=== PATIENT | female | born 1995 | race Caucasian/White ===

== ENCOUNTER 2022-04-17 10:20 | Outpatient (CLI) | payer OTHER ==
[2022-04-17 10:55] LABS: BASOPHILS # (AUTO) 0.1 10^3/uL (0.0-0.1); BASOPHILS % (AUTO) 0.5 %; EOSINOPHILS # (AUTO) 0.1 10^3/uL (0.0-0.7); HCT - HEMATOCRIT 37.3 % (37.0-47.0); HGB - HEMOGLOBIN 12.7 g/dL (12.0-16.0); LYMPHOCYTES # (AUTO) 2.5 10^3/uL (1.5-3.5); LYMPHOCYTES % (AUTO) 19.9 %; MEAN CORPUSCULAR HEMOGLOBIN 31.4 pg (27.0-31.0); MEAN CORPUSCULAR VOLUME 92.1 fL (81.0-99.0); MEAN PLATELET VOLUME 11.9 fL (7.9-10.8); MONOCYTES % (AUTO) 8.2 %; NEUTROPHILS # (AUTO) 8.5 10^3/uL (1.5-6.6); NEUTROPHILS % (AUTO) 68.8 %; PLT - PLATELET COUNT 196 10^3/uL (130-450); RED BLOOD COUNT 4.05 10^6/uL (4.20-5.40); RED CELL DISTRIBUTION WIDTH 12.6 % (12.0-15.0); WHITE BLOOD COUNT 12.4 x10^3/uL (4.8-10.8)
[2022-04-17 11:40] LABS: CREATININE,URINE 14.5 mg/dL
[2022-04-17 11:41] LABS: ALBUMIN 2.9 g/dL (3.2-5.5); ALBUMIN/GLOBULIN RATIO 0.8 (1.0-2.2); BILIRUBIN,TOTAL 0.4 mg/dL (0.2-1.0); CALCIUM 8.9 mg/dL (8.5-10.3); CREATININE 0.5 mg/dL (0.4-1.0); POTASSIUM 3.7 mmol/L (3.5-5.0); TOTAL PROTEIN 6.6 g/dL (6.7-8.2)
[2022-04-17 11:56] LABS: TOTAL PROTEIN,URINE TIMED < 6 mg/dL
== END 2022-04-17 10:21 | disposition home or self-care (01) ==
LOC: LAB 10:20
PROVIDERS: ATTEND Nurse Practitioner Obstetrics & Gynecology
DX: R03.0 Elevated blood-pressure reading, without diagnosis of hypertension (principal)
CPT/HCPCS: 36415; 80053; 82570; 84156; 85025

== ENCOUNTER 2022-04-25 07:26 | Inpatient (IN) | payer OTHER ==
[2022-04-25] MEDS ORDERED: OXYTOCIN 10 UNIT/ML VIAL IM PRN (08:34)
[2022-04-25] MEDS ORDERED: SODIUM CHLORIDE FLUSH 0.9% 10 ML SYRINGE IVP PRN (08:34)
[2022-04-25] MEDS ORDERED: lidocaine 1% 20 ML MDV ID PRN (08:34)
[2022-04-25] MEDS ORDERED: ONDANSETRON 4 MG/2 ML VIAL IVP PRN (08:34)
[2022-04-25] MEDS ORDERED: TRANEXAMIC ACID IN NACL 1,000 MG/100 ML BAG IV PRN (08:34)
[2022-04-25] MEDS ORDERED: miSOPROStoL 200 MCG TABLET BC PRN (08:34)
[2022-04-25] MEDS ORDERED: CARBOPROST TROMETHAMINE 250 MCG/ML AMP IM PRN (08:34)
[2022-04-25] MEDS ORDERED: OXYTOCIN/SODIUM CHLORIDE 500 ML IV PRN (08:34)
[2022-04-25] MEDS ORDERED: METHYLERGONOVINE 0.2 MG/ML VIAL IM PRN (08:34)
--- NOTE | 2022-04-25 08:39 | HISTORY & PHYSICAL EXAMINATION ---
Admit History - Visit Reason Visit Reason: Other - : 1 Parity: 0 Premature: 0 Ectopic: 0 : 0 Care: positive: [facility] Risk/History: positive: None Complications This : positive: induced HTN Smoking Status: Never smoker - Mother's Labs Mother's Blood Type: positive: O Mother's RH: positive: Negative GBS: positive: Group B Step Negative Rubella Status: positive: Immune Review of Systems - Constitutional Constitutional: denies: Fatigue, Fever, Chills, Malaise - Eyes Eyes: denies: Blurred vision, Spots in vision, Dipolpia - Cardiovascular Cariovascular: denies: Irregular heart rate, Palpitations, Chest pain, Edema - Respiratory Respiratory: denies: Cough, Wheezing, SOB at rest - Gastrointestinal Gastrointestinal: denies: Abdominal pain, Constipation, Diarrhea, Change in bowel habits, Nausea, Vomiting - Genitourinary Genitourinary: denies: Dysuria - Integumentary Integumentary: denies: Rash, Pruritis - Neurological Neurological: denies: Headache Physical - Abdominal Exam Vital Signs: Temp Pulse Resp BP Pulse Ox O2 Flow Rate 36.8 C 04/25/22 08:25 Contraction Intensity: positive: Mild Uterine Resting Tone: positive: Soft - Monitoring Heart Rate Baseline: 140 Strip Review: positive: Category I - Presentation Presentation: positive: Vertex - Vaginal Exam Membranes: positive: Membranes intact Dilation (in cm): 4 Effacement (%): 80 Station: positive: -2 Cervical Position: positive: Posterior - Speculum Exam Speculum Exam Performed: positive: No Plan for Labor - Plan For Labor I expect patient to be DC'd or transferred within 96 hours.: Yes Plan for Labor: HPI: This 26yo @ 37.0wks gestation by 13.5wk U/S presents to [facility] for medical induction of labor secondary to gestational hypertension. She was diagnosed at 35.6wks gestation. Her labs have consistently remained WNL. She has experienced an intermittent, mild headache for the past 10 days. She denies headache currently. She denies visual disturbances, RUQ or epigastric pain and denies abnormal swelling. She had a cervical ripening balloon placed yesterday evening in the office and was /3 and posterior at that time. The balloon was inflated with 60cc normal saline. She reports she contracted intermittently with the balloon in place and it fell out at approximately midnight 0000 (in place x 6.5 hours). She denies leakage of fluid and reports the contractions dec reased in intensity after the balloon was spontaneously expelled. She has noticed increased vaginal mucous that is blood-tinged since that time. Upon arrival to [facility] this morning she was noted to be 4/80/-2, posterior, soft, and vertex with intact membranes. FHR baseline 140s, moderate variability, + accels, no decels. Contractions palpate mild intermittently with soft resting tone. She will be admitted to [facility] for active management. She has been a patient of [facility] since her transfer of care from [facility] at 17.4wks gestation. She has received consistent care for the duration of her which has remained uncomplicated with the exception of her diagnosis of gestational hypertension. She is noted to be Rh negative and received Rhogam 02/22/2022 at 28.1wks gestation. She is supported by her Ernie. 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 Last pap April 2021, No hx of abnormals. Medical Hx: Hx chlamydia several years ago, treated. Surgical Hx: No surgical hx. Family Hx: Maternal HTN. Meds: PNV. Occasional use of claratin and tylenol. Allergies: None known. 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 No tobacco, ETOH or recreational drug use. Quit vaping for . No ETOH or IVDA. Denies caffeine intake. course: O neg, antibody negative Rhogam 02/22/2022 @ 28.1wks Initial U/S @ 07/30/2021 dates (Not c/w LMP dating) FAS WNL with the exception of incomplete visualization of spine, cardiac outflow tracts, and cord insertion. Size c/w dating. 3VC. Completion FAS WNL. Tdap - 03/18/2022 COVID - 08/11/20 & 09/04/20 Influenza - 03/18/2022 Glucola 91 GBS negative Physical exam: Normocephalic, atraumatic Heart RRR w/o M/G/R Lungs CTAB Abdomen gravid, soft, nontender EFW 3400g FHR baseline 140s, moderate variability, + accels, no decels Contractions palpate mild intermittently with soft resting tone SVE 4/80/-2, posterior, soft. Vertex AROM occurred and was noted to be a moderate amount of clear fluid DTRs 2+, no clonus Bilateral LE's trace edema Assessment: 26yo @ 37.0wks gestation by 13.5wk Gestational hypertension Rh negative GBS neg FHR Category I Plan: Admit for active management/gestational hypertension Continuous monitoring. Expectant management x 2 hours with initiation of pitocin at that time if contractions less than q 3-5 min. Jacuzzi PRN. Nitrous oxide PRN. Epidural per maternal request. Anticipate .
[2022-04-25] MEDS ORDERED: NIFEdipine 10 MG CAPSULE PO PRN (08:44)
[2022-04-25] MEDS ORDERED: LABETALOL 20 MG/4 ML SYRINGE IVP PRN ×3 (08:44)
[2022-04-25] MEDS ORDERED: hydrALAZINE INJ 20 MG/ML VIAL IVP PRN ×2 (08:44)
[2022-04-25 08:52] LABS: BASOPHILS # (AUTO) 0.1 10^3/uL (0.0-0.1); BASOPHILS % (AUTO) 0.3 %; EOSINOPHILS # (AUTO) 0.1 10^3/uL (0.0-0.7); EOSINOPHILS % (AUTO) 0.4 %; HCT - HEMATOCRIT 38.2 % (37.0-47.0); LYMPHOCYTES # (AUTO) 2.7 10^3/uL (1.5-3.5); LYMPHOCYTES % (AUTO) 14.4 %; MEAN CORPUSCULAR HEMOGLOBIN 30.7 pg (27.0-31.0); MEAN CORPUSCULAR VOLUME 90.1 fL (81.0-99.0); MEAN PLATELET VOLUME 12.9 fL (7.9-10.8); MONOCYTES # (AUTO) 1.3 10^3/uL (0.0-1.0); MONOCYTES % (AUTO) 7.1 %; NEUTROPHILS # (AUTO) 14.4 10^3/uL (1.5-6.6); NEUTROPHILS % (AUTO) 76.9 %; PLT - PLATELET COUNT 211 10^3/uL (130-450); RED BLOOD COUNT 4.24 10^6/uL (4.20-5.40); RED CELL DISTRIBUTION WIDTH 12.9 % (12.0-15.0); WHITE BLOOD COUNT 18.7 x10^3/uL (4.8-10.8)
[2022-04-25] MEDS ORDERED: SODIUM CHLORIDE FLUSH 0.9% 10 ML SYRINGE IVP SCH (09:00)
[2022-04-25] MEDS ORDERED: LACTATED RINGERS 1,000 ML ONE (09:00)
[2022-04-25 09:02] LABS: ALBUMIN 3.3 g/dL (3.2-5.5); ALBUMIN/GLOBULIN RATIO 0.9 (1.0-2.2); BILIRUBIN,TOTAL 0.6 mg/dL (0.2-1.0); CALCIUM 9.3 mg/dL (8.5-10.3); CREATININE 0.6 mg/dL (0.4-1.0); POTASSIUM 3.6 mmol/L (3.5-5.0); TOTAL PROTEIN 6.9 g/dL (6.7-8.2)
--- NOTE | 2022-04-25 10:03 | ANESTHESIA ---
Pre-Anesthesia VS, & Labs - Diagnosis induction of labor - Procedure vaginal delivery Vital Signs: Temp Pulse Resp BP Pulse Ox O2 Flow Rate 36.8 C 04/25/22 08:25 Height: 5 ft 9 in Weight (kg): 97.976 kg Body Mass Index: 31.8 BMI Classification: Obese - NPO Other (clear liquids) - Is Patient ?: Yes - Lab Results Current Lab Results: Laboratory Tests 04/25/22 08:00: Sodium 137, Potassium 3.6, Chloride 105, Carbon Dioxide 20 L, Anion Gap 12.0, BUN 9, Creatinine 0.6, Estimated GFR (MDRD) 122, Glucose 81, Calcium 9.3, Total Bilirubin 0.6, AST 26, ALT 26, Alkaline Phosphatase 133 H, Total Protein 6.9, Albumin 3.3, Globulin 3.6, Albumin/Globulin Ratio 0.9 L 04/25/22 08:00: WBC 18.7 H, RBC 4.24, Hgb 13.0, Hct 38.2, MCV 90.1, MCH 30.7, MCHC 34.0, RDW 12.9, Plt Count 211, MPV 12.9 H, Neut # (Auto) 14.4 H, Lymph # (Auto) 2.7, Andrews # (Auto) 1.3 H, Eos # (Auto) 0.1, Baso # (Auto) 0.1, Absolute Nucleated RBC 0.00, Nucleated RBC % 0.0 Lab results reviewed: Yes Fish Bones: 04/25/22 08:00 04/25/22 08:00 Home Medications and Allergies Active Medications Carboprost Tromethamine (Carboprost Tromethamine 250 Mcg/Ml Amp) 250 mcg IM Q15M PRN PRN Reason: Step 4: Hemorrhage protocol Stop: 04/30/22 08:34 Hydralazine HCl (Hydralazine Inj 20 Mg/Ml Vial) 10 mg IVP .ONCE PRN PRN Reason: SBP> or= 160 OR DBP> or= 110 Hydralazine HCl (Hydralazine Inj 20 Mg/Ml Vial) 5 - 10 mg IVP Q20M PRN; Protocol PRN Reason: SBP> or= 160 OR DBP> or= 110 Oxytocin/Sodium Chloride (Pitocin/Sodium Chloride) 500 mls @ 999 mls/hr IV PRN PRN; Protocol PRN Reason: POST- HEMORR PREVENTION Stop: 04/30/22 08:34 Tranexamic Acid (Tranexamic 1,000 Mg/100ml-Nacl) 1,000 mg in 100 mls @ 600 mls/hr IV .ONCE PRN PRN Reason: EBL >1200mL and within 3hr Stop: 04/30/22 08:34 Lactated Ringer's (Lr) 1,000 mls @ 125 mls/hr IV .Q8H ASHLEY Labetalol HCl (Labetalol 20 Mg/4 Ml Syringe) 20 mg IVP .ONCE PRN PRN Reason: SBP> or= 160 OR DBP> or= 110 Labetalol HCl (Labetalol 20 Mg/4 Ml Syringe) 20 - 80 mg IVP Q10M PRN; Protocol PRN Reason: SBP> or= 160 OR DBP> or= 110 Labetalol HCl (Labetalol 20 Mg/4 Ml Syringe) 20 - 40 mg IVP Q10M PRN; Protocol PRN Reason: SBP> or= 160 OR DBP> or= 110 Lidocaine HCl (Lidocaine 1% 20 Ml Mdv) 20 ml ID .ONCE PRN PRN Reason: PERINEAL REPAIR Stop: 04/30/22 08:34 Methylergonovine Maleate (Methylergonovine 0.2 Mg/Ml Vial) 0.2 mg IM .ONCE PRN PRN Reason: Step 2: Hemorrhage protocol Stop: 04/30/22 08:34 Misoprostol (Misoprostol 200 Mcg Tablet) 800 mcg BC .ONCE PRN PRN Reason: Step 3: Hemorrhage protocol Stop: 04/30/22 08:34 Nifedipine (Nifedipine 10 Mg Capsule) 10 - 20 mg PO Q20M PRN; Protocol PRN Reason: SBP> or= 160 OR DBP> or= 110 Ondansetron HCl (Ondansetron 4 Mg/2 Ml Vial) 4 mg IVP Q4HR PRN PRN Reason: Nausea / Vomiting Oxytocin (Oxytocin 10 Unit/Ml Vial) 10 unit IM .ONCE PRN PRN Reason: Step one: If no IV access Stop: 04/30/22 08:34 Sodium Chloride (Sodium Chloride Flush 0.9% 10 Ml Syringe) 10 ml IVP 0100,0900,1700 ASHLEY Sodium Chloride (Sodium Chloride Flush 0.9% 10 Ml Syringe) 10 ml IVP PRN PRN PRN Reason: NEEDED PER PROVIDER ORDERS Allergies/Adverse Reactions: Allergies Allergy/AdvReac Type Severity Reaction Status Date / Time No Known Drug Allergies Allergy Verified 04/25/22 10:02 Anes History & Medical History - Anesthetic History Family history of Anesthesia Complications: Denies Family history of Malignant Hyperthermia: Denies - Medical History Cardiovascular: reports: Hypertension (PIH) Pulmonary: reports: None Gastrointestinal: reports: None Urinary: reports: None Neuro: reports: None Musculoskeletal: reports: None Endocrine/Autoimmune: reports: None Blood Disorders: reports: None Skin: reports: None Smoking Status: Former smoker (vaped, quit 1 year ago) Psychosocial: reports: No issues indicated History of Cancer?: No - Surgical History Other Past Surgical History: wisdom teeth - Obstetrical History : 1 Parity: 0 Events: reports: None Complications: reports: induced HTN Exam General: Alert, Oriented x3, Cooperative, No acute distress Dental: WNL (perm. retainer front lower) Mouth Openin Fingerbreadth Neck Mobility: Normal Mallampati classification: II Thyromental Distance: 4-6 cm Mental/Cognitive Status: Alert/Oriented X3, Normal for patient Plan Anesthesia Type: Epidural Consent for Procedure(s) Verified and Reviewed: Yes Code Status: Attempt Resuscitation ASA classification: 2-Mild systemic disease Is this case an emergency?: No
[2022-04-25 10:57] LABS: CREATININE,URINE 84.1 mg/dL; PROTEIN/CREATININE RATIO,URINE 0.1 (<=0.2)
[2022-04-25] MEDS ORDERED: ROPIVACAINE 0.2% 200 MG/100 ML BAG EP ONE (12:26)
[2022-04-25] MEDS: LACTATED RINGERS 1,000 ML IV SCH ×2 (12:45→15:21)
[2022-04-25] MEDS ORDERED: NALOXONE 0.4 MG/ML VIAL IVP PRN (12:56)
[2022-04-25] MEDS ORDERED: ROPIVACAINE 0.2% 200 MG/100 ML BAG EP PRN (12:56)
[2022-04-25] MEDS ORDERED: OXYTOCIN/SODIUM CHLORIDE 500 ML IV SCH (14:15)
[2022-04-25] MEDS ORDERED: ePHEDrine 50 MG/ML VIAL IVP PRN (16:34)
--- NOTE | 2022-04-25 16:39 | CONSULTATION NOTE ---
Consultation Report: called as patient having nausea, FHR changes with each intermittent programmed bolus, changed pump settings to 10cc/hour continuous and ephedrine prn ordered
[2022-04-25] MEDS ORDERED: WITCH HAZEL/GLYCERIN 1 PAD TOP PRN (18:31)
[2022-04-25] MEDS ORDERED: HYDROCORTISONE 1% CREAM 28 GM TUBE PR PRN (18:31)
--- NOTE | 2022-04-25 18:42 | DELIVERY NOTE ---
Delivery Note - Labor Labor: positive: Augmented by oxytocin, Induced by ARM - Delivery Method Infant Delivery Method: positive: Spontaneous vaginal delivery - Cervical Ripening Method Cervical Ripening Method: positive: Balloon device - Presentation Presentation: positive: Vertex, Compound, MINNIE - right occiput anterior - Nuchal Cord Nuchal Cord: positive: None - Amniotic Fluid Description Amniotic Fluid Description: positive: Clear - Episiotomy Type Episiotomy Type: positive: None - Laceration Laceration: positive: None - Delivery Outcome Delivery Outcome: positive: Livebirth - : positive: Placed in direct skin contact with mother, Bulb syringe, Stimulated, Warmed, [place] used, Warmer used [place] sex: positive: Male - Cord Cord: positive: 3 vessels - Placenta Placenta: positive: Intact, Spontaneous - Estimated Blood Loss Estimated Blood Loss (in cc): 200 - Post Delivery Events Post Delivery Events: positive: No post delivery events - Delivery Comments (Free Text/Narrative) Delivery Comments (Free Text/Narrative): Note: Labor: This 26yo @ 37.0wks gestation by 13.5wk U/S presented on 04/25/2022 at 0730 for medical induction of labor secondary to gestational hypertension. She had a cervical ripening balloon placed 04/24/2022 @ 1830 and it was spontaneously expelled 04/25/2022 at 0000. Upon arrival SVE 4/80/-2 and vertex with intact membranes. AROM occurred at 0822 and was noted to be a moderate amount of clear fluid. Epidural was placed per maternal request. Pitocin initiated for labor augmentation for a maximum infusion rate of 7 mU/mL. She progressed to c/c/0 at 1740 with onset of pushing at 1802. : Normal SVB of viable male infant on 04/25/2022 @ 1809 in MINNIE position with compound right hand. No nuchal cord. The was placed on maternal abdomen, stimulated, dried, and placed skin to skin. Apgars were 8/8 at 1 and 5 minutes respectively. Pitocin initiated via IV for hemostasis. The umbillical cord was allowed to stop pulsating at which time it was doubly clamped by CNM and cut by FOB. 3VC. Cord blood was obtained. Fundal massage and gentle cord traction applied for active management of the third stage. Placenta delivered spontaneously and intact at 1816. EBL 200mL. Fourth stage: Uterine fundus firm and there is no excessive bleeding. The perineum, vagina, and cervix were inspected and noted to be intact. initiated. Family bonding well. Both mother and baby were left in stable condition.
[2022-04-25] MEDS: DOCUSATE SODIUM 100 MG CAPSULE PO SCH (21:35)
[2022-04-25] MEDS: IBUPROFEN 800 MG TABLET PO SCH (21:35)
[2022-04-25] MEDS: ACETAMINOPHEN 500 MG TABLET PO SCH (21:35)
[2022-04-26] MEDS: IBUPROFEN 800 MG TABLET PO SCH ×3 (04:43→20:32)
[2022-04-26] MEDS: ACETAMINOPHEN 500 MG TABLET PO SCH ×3 (05:32→22:47)
[2022-04-26] MEDS: DOCUSATE SODIUM 100 MG CAPSULE PO SCH ×2 (09:36→20:32)
[2022-04-27] MEDS: IBUPROFEN 800 MG TABLET PO SCH ×2 (02:33→08:30)
[2022-04-27] MEDS: ACETAMINOPHEN 500 MG TABLET PO SCH (06:45)
[2022-04-27] MEDS: DOCUSATE SODIUM 100 MG CAPSULE PO SCH (08:30)
[2022-04-27 08:34] VITALS: BP 127/69
--- NOTE | 2022-04-27 10:23 | PROVIDER PROGRESS NOTE ---
Subjective - Subjective Subjective: S: Bonding well with baby. with some difficulty but has been able to hand express a large amount of colostrum into a teaspoon to feed which she feels good about. She was able to get some sleep last night. She is supported by her mom and her mother in law as her just went home to take a shower and a nap. She is feeling good physically and states her bleeding is decreased and is light. Her pain is well controlled with oral medications. She denies WOLFE, visual disturbances, RUQ or epigastric pain. O: BP normotensive. Heart RRR w/o M/G/R, lungs CTAB, abdomen soft and nontender with fundus firm at U, perineum intact, light lochia rubra, bilateral LE's trace edema. A: 26yo -->P1 PPD#1 s/p TSVD viable male infant Rh negative - Rh negative Gestational hypertension - resolved Normal recovery P: Continue routine care and medications. Special attention to today. Evaluate for discharge home tomorrow. Objective - Vital Signs/Intake & Output Vital Signs: Vital Signs x48h Temp Pulse Resp BP Pulse Ox 04/27/22 08:00 36.2 C L 89 16 127/69 100 Intake & Output: Intake & Output 04/24/22 04/25/22 04/26/22 04/27/22 23:59 23:59 23:59 23:59 Intake Total 2500 Output Total 1420 Balance 1080 - Lab Results Fish Bones: 04/25/22 08:00 04/25/22 08:00
--- NOTE | 2022-04-27 10:25 | Discharge Plan ---
Discharge Plan Problem Reviewed?: Yes Disposition: Home, Self Care Condition: Good Diet: Regular Activity Restrictions: No Restrictions Shower Restrictions: No Driving Restrictions: No Weight Bearing: Full Weight Instruction Topics: Vaginal After No Smoking: If you smoke, Please STOP! Call for help. Follow-up with: Moraima Merritt CNM, ARNP [Provider Admit Priv/Credential] -
--- NOTE | 2022-04-27 10:33 | DISCHARGE SUMMARY ---
Discharge Summary Condition at Discharge: Good Discharge Disposition: 01 Home, Self Care - HOSPITAL COURSE Hospital Course: Date of Admission: 04/25/2022 Date of Discharge: 04/27/2022 Diagnosis on Admission: 1. 26yo @ 37.0wks gestation by 13.5wk 2. Gestational hypertension 3. Rh negative 4. GBS neg 5. FHR Category I Diagnosis on Discharge: 1. 26yo PPD#2 s/p TSVD viable male 2. Gestational hypertension - resolved 3. Rh negative - infant Rh negative as well 4. 5. Normal recovery Brief History: She is a patient of [facility] who presented on 04/25/2022 for medical induction of labor secondary to gestational hypertension. She was s/p cervical ripening balloon and cervix was 4/80/-2, posterior and vertex with intact membranes. AROM occurred at 0822 and was noted to be a moderate amount of clear fluid. Epidural was placed her maternal request. Pitocin was initiated for labor augmentation with a maximum infusion rate of 7mU/mL. She progressed to spontaneously deliver a viable male on 04/25/2022 @ 1809 in MINNIE position with right compound hand over intact perineum. Apgars were 8/8 at 1 and 5 minutes respectively. EBL 200mL. She has been doing well in her course. She is ambulating and tolerating a regular diet. She is urinating without difficulty and her lochia is normal. Her pain is well controlled with oral medications. She has continued to deny headache, visual disturbances, RUQ or epigastric pain and her blood pressure has become normotensive since delivery. She is bonding well with her ba by and she is with some difficulty getting baby to latch appropriately and wake for feeds but has been working closely with nursing staff and has an abundance of colostrum. She has also been able to hand express and teaspoon feed. She will be discharged home today on day #1 with instructions to continue taking her vitamin while and to continue taking ibuprofen and tylenol over the counter as needed for pain management. She intends to follow up with myself at [facility] in 1 week for routine visit or sooner if needed. She has been given precautions to call if she has any worsening fevers, chills, abdominal pain, increased vaginal bleeding or foul smelling vaginal lochia. Physical exam: Normocephalic, atraumatic, heart RRR w/o M/G/R, lungs CTAB, abdomen soft and nontender with fundus firm at U-1, perineum intact, light lochia rubra, bilateral LE's 1+ edema, mood is good. - ALLERGIES Allergies/Adverse Reactions: Allergies Allergy/AdvReac Type Severity Reaction Status Date / Time No Known Drug Allergies Allergy Verified 04/25/22 10:02 - LABS Result Diagrams: 04/25/22 08:00 04/25/22 08:00
--- NOTE | 2022-04-27 12:26 | Labor Flowsheet ---
Labor Flowsheet Datetime Report Generated by CPN: 04/27/2022 12:26 Datetime: 04/27/2022 08:26 VITAL SIGNS NBP Sys/Erica/Mean (mmHg): 127 : 69 : 82 Pulse: 89 Datetime: 04/25/2022 22:28 Stage of : Datetime: 04/25/2022 21:16 Temperature (C): 36.9 Temperature Route: Oral Datetime: 04/25/2022 20:40 ANESTHESIA Anesthesia Plans: Epidural Epidural Procedure Other: Cath Removed; Cath Intact Datetime: 04/25/2022 18:59 SpO2 (%): 100 Datetime: 04/25/2022 18:34 PAIN Pain Scale: 2 Pain Presence: Intermittent Pain Location: Abdomen; Back Datetime: 04/25/2022 18:30 LaborFlag: Labor Datetime: 04/25/2022 18:27 Membranes Ruptured Date/Time: 04/25/2022 08:22 Cervical Ripening Agents: Tse Balloon Datetime: 04/25/2022 18:12 Stage 2 Comments: cord cut Datetime: 04/25/2022 18:07 STAGE 2 Pushing: Coached on Pushing; No Urge to Push Pushing Position: Pushing with Contractions Pushing Progress: Descent with Pushing; Perineal Bulging; Rectal Bulging; Molding Noted; Caput Note d; Presenting Part Visible Datetime: 04/25/2022 18:05 FHR Baseline Rate : 140 FHR Baseline Changes: No Baseline Change Variability: Moderate 6-25 bpm Accelerations: 15X15 Decelerations: None Category: Category I Comments: Pt pushing Datetime: 04/25/2022 18:00 I/O Interventions: Tse Discontinued Patient Care Comments: 800ml output Datetime: 04/25/2022 17:57 COMMUNICATION Communication: Provider at Bedside Datetime: 04/25/2022 17:45 Frequency (min): 2-3 min Quality: Moderate Pattern: Normal: <= 5 Contractions in 10 Minutes Resting Tone (Palpate): Relaxed Contraction Comments: unable to track well ASSESSMENT A Monitor Mode: Telemetry Datetime: 04/25/2022 17:40 VAGINAL EXAM Dilatation (cm): 10.0 Effacement (%): 100 Station: 1 Vaginal Bleeding: Scant MATERNAL ASSESSMENT Level of Consciousness: Alert DTR's/Clonus: DTRs 1+ Nausea/Vomiting: Denies Notification Reason: Status Update Communication Comments: Provider to come to hospital Datetime: 04/25/2022 17:33 Anesthesia Level Check: T10- Umbilicus Datetime: 04/25/2022 17:29 Duration (sec): 60-80 Datetime: 04/25/2022 17:15 UTERINE ACTIVITY Monitor Mode: External Pitocin Checklist: At Least 1 Acceleration of 15 bpm x 15 Seconds in 30 Minutes or Adequate Variabi lity; No More than 1 Late Deceleration Occurred in Past 30 Minutes; No More than 2 Variable Decelerat ions > 60 Seconds in Duration and decreasing >60 bpm in 30 minutes; No More than 5 Uterine Contractio ns in 10 Minutes for any 20 Minute Interval MEDICATIONS Pitocin (milliunits): Increased to @ 7 Datetime: 04/25/2022 16:25 Patient Position/Activity: Left Tilt Datetime: 04/25/2022 16:15 Oxygen Method: Room Air Datetime: 04/25/2022 15:29 Respirations: 16 Datetime: 04/25/2022 15:14 PATIENT CARE IV/Blood Work: IV Bolus Started Datetime: 04/25/2022 15:00 Monitor Interventions for UA: [place] Adjusted Datetime: 04/25/2022 14:01 Monitor Interventions for FHR: Ultrasound Adjusted Actions for Decelerations: Side to Side Provider Reviewed Strip: Yes Datetime: 04/25/2022 13:33 Exam by: gualberto jesús cnm Cervix, Consistency: Soft Datetime: 04/25/2022 13:01 Pain Coping: Sleeping Pain Assessment Comments: feeling better on right side. Datetime: 04/25/2022 12:40 Epidural Procedure: Loading Dose Datetime: 04/25/2022 12:31 PROCEDURE TIME OUT Procedure Verify: Correct Patient Identity; Accurate Procedure Consent Form; Agreement on Procedure to be Done; Correct Patient Position; Addressed Need to Administer Antibiotics or Fluids for Irrigat ion; Safety Precautions Based on Patient History or Medication Use Epidural Positioning: Sitting Datetime: 04/25/2022 12:27 Anesthesia Comments: cardiac exercise physiologist here Datetime: 04/25/2022 11:19 Cervix, Position: Midposition
== END 2022-04-27 12:10 | disposition home or self-care (01) | DRG 807 ==
LOC: WFO 07:26 → FBP 07:42 → WFO 08:33 → FBP 08:34
PROVIDERS: ADMIT Nurse Practitioner Obstetrics & Gynecology; ATTEND Nurse Practitioner Obstetrics & Gynecology
PROC: 10907ZC Drainage of Amniotic Fluid, Therapeutic from Products of Conception, Via Natural or Artificial Opening (ICD-10-PCS; principal; 2022-04-25)
PROC: 10E0XZZ Delivery of Products of Conception, External Approach (ICD-10-PCS; 2022-04-25)
DX: O13.4 Gestational [pregnancy-induced] hypertension without significant proteinuria, complicating childbirth (principal); Z37.0 Single live birth; O32.6XX0 Maternal care for compound presentation, not applicable or unspecified; Z3A.37 37 weeks gestation of pregnancy; O26.893 Other specified pregnancy related conditions, third trimester; Z67.41 Type O blood, Rh negative; O99.214 Obesity complicating childbirth; Z87.891 Personal history of nicotine dependence
CPT/HCPCS: 36415; 80053; 82570; 84156; 85025; 86850; 86870; 86880; 86900; 86901; A9270; J7120

== ENCOUNTER 2024-02-03 08:00 | Outpatient (CLI) | payer OTHER ==
[2024-02-03 18:54] LABS: CHLAMYDIA TRACHOMATIS DNA NEGATIVE (NEGATIVE); NEISSERIA GONORRHOEAE DNA NEGATIVE (NEGATIVE); TRICHOMONAS VAGINALIS DNA NEGATIVE (NEGATIVE)
== END 2024-02-03 23:59 | disposition home or self-care (01) ==
LOC: LAB.WC 08:00
PROVIDERS: ATTEND Nurse Practitioner Obstetrics & Gynecology
DX: Z11.3 Encounter for screening for infections with a predominantly sexual mode of transmission (principal)
CPT/HCPCS: 87491; 87591; 87661

== ENCOUNTER 2024-08-26 14:55 | Inpatient (IN) ==
[2024-08-26] MEDS ORDERED: hydrALAZINE INJ 20 MG/ML VIAL IVP PRN ×2 (16:02)
[2024-08-26] MEDS ORDERED: LACTATED RINGERS 1,000 ML IV PRN (16:02)
[2024-08-26] MEDS ORDERED: NIFEdipine 10 MG CAPSULE PO PRN (16:02)
[2024-08-26] MEDS ORDERED: CARBOPROST TROMETHAMINE 250 MCG/ML VIAL IM PRN (16:02)
[2024-08-26] MEDS ORDERED: TRANEXAMIC ACID IN NACL 1,000 MG/100 ML BAG IV PRN (16:02)
[2024-08-26] MEDS ORDERED: miSOPROStoL 200 MCG TABLET BC PRN (16:02)
[2024-08-26] MEDS ORDERED: OXYTOCIN/SODIUM CHLORIDE 500 ML IV PRN (16:02)
[2024-08-26] MEDS ORDERED: SODIUM CHLORIDE FLUSH 0.9% 10 ML SYRINGE IVP PRN (16:02)
[2024-08-26] MEDS ORDERED: LABETALOL 20 MG/4 ML SYRINGE IVP PRN ×3 (16:02)
[2024-08-26] MEDS ORDERED: METHYLERGONOVINE 0.2 MG/ML VIAL IM PRN (16:02)
[2024-08-26] MEDS ORDERED: OXYTOCIN 10 UNIT/ML VIAL IM PRN (16:02)
[2024-08-26] MEDS ORDERED: lidocaine 1% 20 ML MDV ID PRN (16:02)
--- NOTE | 2024-08-26 16:13 | HISTORY & PHYSICAL EXAMINATION ---
Admit History Smoking Status: Never smoker Meds/Allgy Home Medications Ambulatory Orders Medication Instructions Recorded Confirmed vitamins no.159-iron tab PO 03/08/24 08/24/24 fumarate 28 mg-folic acid 800 mcg tablet ( Vitamin) aspirin 81 mg tablet,delayed 81 mg PO QDAY 04/19/24 08/24/24 release (Adult Aspirin Regimen) acyclovir 400 mg tablet 400 mg PO TID #15 tabs 05/17/24 08/24/24 Allergies Allergies Allergy/AdvReac Type Severity Reaction Status Date / Time No Known Drug Allergies Allergy Verified 08/24/24 12:40 PFSH Active Problems All Active Problems (Updated 08/10/24 @ 15:47 by JUSTIN Meeks) Gestational HTN (Acute) Rh negative status during (Acute) Supervision of normal (Acute) Medical History Medical History (Updated 08/10/24 @ 15:47 by JUSTIN Meeks) Elevated blood pressure reading in office without diagnosis of hypertension Surgical History Surgical History [place] teeth extracted Social History Social History Smoking Status: Never smoker Plan for Labor Plan For Labor I expect patient to be DC'd or transferred within 96 hours.: Yes Plan for Labor: Anna is a 29yo @ 37.0wks gestation by LMP c/w first trimester ultrasound presents to [facility] for induction of labor secondary to gestational hypertension. Upon arrival BP is 140/99. She denies headaches, visual disturbances RUQ or epigastric pain. Pre-eclampsia labs are ordered and results pending. She has been taking LDASA since 12wks gestation. Diagnosis of GHT occurred at 34wks gestation. She had a physician consult at that time in addition to growth ultrasound which was WNL (EFW 85%tile). She has also received twice weekly NSTs since her diagnosis which have all remained reactive/WNL. Upon arrival her cervix is noted to be fingertip/60/-3, posterior, soft and vertex with intact membranes. She will be admitted to [facility] for active management of labor with placement of cervical ripening balloon and administration of misoprostol for pre-induction cervical ripening. She is supported by her Ernie today. Dating criteria: LMP: 12/11/2023 DWIGHT by LMP: 09/17/2024 Initial U/S: 02/03/2024 c/w lmp FINAL DWIGHT: 09/16/2024 PROBLEMS: -Hx Gestational Hypertension. Current gestational HTN diagnosed at 34wks -LDASA daily -Consult with physician secondary to development of gestational hypertension at 34wks -Growth ultrasound @ 35wks WNL (EFW 85%tile) -Twice weekly NSTs initiated -IOL scheduled 08/26/2024 Medical Hx: GHTN Surgical Hx: wisdom teeth Social Hx: Ernie is active [employer]. 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 Denies ETOH or IVDA. Never smoker. Family Hx: No significant ALLERGiES: NKDA RX: Acyclovair, PNV, Aspirin Pre- Weight: 202 BMI: 34 Blood type O negative Rh Negative Antibody Negative CBC: PLT 303 HCT 39.6 HGB 13.5 RUB: Immune VZV: immune HBsAg Negative HepC NR RPR/AB-EIA: NR HIV: NR GC/CT: Negative HSV: denies in self and partner Genetic testing: NIPT neg FAS: Placenta:Anterior Cord: 3vc LISANDRA: 20.4cm EFW: 623g 50gm OGCT: 109 TDAP: 07/28/2024 Breast Pump: given RHOGAM 07/06 Growth and LISANDRA at 35wks: EFW 85%tile, LISANDRA WNL Antibody screen: negative 3rd trimester PLT 191 34.2/11.5 3rd trimester RPR NR GBS: 08/24/2024 neg Delivery plan: Desires unmedicated delivery, , limited use of pitocin if possible MOD: Anticipate Physical exam: Normocephalic, atraumatic Heart RRR w/o M/G/R Lungs CTAB Abdomen gravid, soft, nontender EFW 3400g FHR baseline 150, moderate variability, + accels, no decels No contractions appreciated via tocometry Bilateral LE's trace edema Mood is good Assessment: 29yo @ 37.0wks gestation Gestational hypertension FHR Category I GBS negative Plan: Admit to [facility] for induction of labor Pre-induction cervical ripening with placement of cervical ripening balloon and 50mcg BC misoprostol x once Continuous monitoring. Jacuzzi PRN. Nitrous oxide PRN. Epidural per maternal request - pt prefers unmedicated delivery Anticipate .
[2024-08-26 16:26] LABS: BASOPHILS % (AUTO) 0.3 %; EOSINOPHILS # (AUTO) 0.2 10^3/uL (0.0-0.7); EOSINOPHILS % (AUTO) 1.4 %; HCT - HEMATOCRIT 36.4 % (37.0-47.0); HGB - HEMOGLOBIN 12.5 g/dL (12.0-16.0); LYMPHOCYTES # (AUTO) 2.2 10^3/uL (1.5-3.5); LYMPHOCYTES % (AUTO) 16.8 %; MEAN CORPUSCULAR HEMOGLOBIN 31.4 pg (27.0-31.0); MEAN CORPUSCULAR HGB CONC 34.3 g/dL (32.0-36.0); MEAN CORPUSCULAR VOLUME 91.5 fL (81.0-99.0); MEAN PLATELET VOLUME 12.1 fL (7.9-10.8); MONOCYTES % (AUTO) 7.1 %; NEUTROPHILS # (AUTO) 9.7 10^3/uL (1.5-6.6); NEUTROPHILS % (AUTO) 73.1 %; PLT - PLATELET COUNT 196 10^3/uL (130-450); RED BLOOD COUNT 3.98 10^6/uL (4.20-5.40); RED CELL DISTRIBUTION WIDTH 13.1 % (12.0-15.0); WHITE BLOOD COUNT 13.3 x10^3/uL (4.8-10.8)
[2024-08-26] MEDS: miSOPROStoL 100 MCG TABLET BC SCH (16:28)
[2024-08-26 16:41] LABS: ALBUMIN 3.6 g/dL (3.2-5.5); ALBUMIN/GLOBULIN RATIO 1.3 (1.0-2.2); BILIRUBIN,TOTAL 0.5 mg/dL (0.2-1.0); CREATININE 0.6 mg/dL (0.6-1.3); POTASSIUM 3.8 mmol/L (3.5-4.5); TOTAL PROTEIN 6.4 g/dL (6.4-8.9)
--- OUTSIDE RECORDS SUMMARY | 2024-08-26 16:52 | EXTERNAL MEDICAL SUMMARY RPT | Continuity of Care Document ---
Author Organization [facility] Address [address] [place] [id number] Phone Problems date description facility 2024-06-03 11:17 Encounter for superv ision of normal , unspecified, unspecified trimester [facility] 2024-06-03 11:20 Encounter for superv ision of normal , unspecified, unspecified trimester [facility] 2024-06-14 12:58 Encounter for superv ision of normal , unspecified, unspecified trimester [facility] 2024-06-15 00:02 Encounter for superv ision of normal , unspecified, unspecified trimester [facility] 2024-06-15 18:26 Encounter for superv ision of normal , unspecified, unspecified trimester [facility] 2024-06-16 18:02 Encounter for superv ision of normal , unspecified, second trimester [facility] 2024-06-23 13:28 Encounter for superv ision of normal , unspecified, unspecified trimester [facility] 2024-06-24 00:03 Encounter for superv ision of normal , unspecified, unspecified trimester [facility] 2024-06-24 08:15 Encounter for superv ision of normal , unspecified, unspecified trimester [facility] 2024-06-24 08:18 Encounter for superv ision of normal , unspecified, unspecified trimester [facility] 2024-07-06 19:35 Other specified preg tino related conditions, unspecified trimester [facility] 2024-07-06 19:35 Encounter for superv ision of normal , unspecified, unspecified trimester [facility] 2024-07-06 19:35 Unspecified blood type, Rh nega tive [facility] 2024-07-06 19:36 Other specified preg tino related conditions, unspecified trimester [facility] 2024-07-06 19:36 Encounter for superv ision of normal , unspecified, unspecified trimester [facility] 2024-07-06 19:36 Unspecified blood type, Rh nega tive [facility] 2024-07-07 00:02 Other specified preg tino related conditions, unspecified trimester [facility] 2024-07-07 00:02 Encounter for superv ision of normal , unspecified, unspecified trimester [facility] 2024-07-07 00:02 Unspecified blood type, Rh nega timoisés [facility] 2024-07-28 14:03 Decreased move ments, third trimester, not applicable or unspecified [facility] 2024-07-28 18:21 Encounter for immunization [facility] 2024-07-28 18:23 Encounter for immunization [facility] 2024-07-28 20:12 Elevated blood-press ure reading, without diagnosis of hypertension [facility] 2024-07-29 00:01 Elevated blood-press ure reading, without diagnosis of hypertension [facility] 2024-07-29 00:01 Encounter for immunization [facility] 2024-07-29 00:04 Elevated blood-press ure reading, without diagnosis of hypertension [facility] 2024-07-29 09:04 Elevated blood-press ure reading, without diagnosis of hypertension [facility] 2024-08-09 09:33 Encounter for superv ision of normal , unspecified, unspecified trimester [facility] 2024-08-10 17:10 Gestational [pregnan cy-induced] hypertension without significant proteinuria, unspecified trimester [facility] 2024-08-10 17:12 Gestational [pregnan cy-induced] hypertension without significant proteinuria, unspecified trimester [facility] 2024-08-10 17:16 Gestational [pregnan cy-induced] hypertension without significant proteinuria, unspecified trimester [facility] 2024-08-10 18:52 Encounter for superv ision of other normal , unspecified trimester [facility] 2024-08-10 18:53 Gestational [pregnan cy-induced] hypertension without significant proteinuria, unspecified trimester [facility] 2024-08-11 00:04 Gestational [pregnan cy-induced] hypertension without significant proteinuria, unspecified trimester [facility] 2024-08-11 07:22 Gestational [pregnan cy-induced] hypertension without significant proteinuria, [facility]-08-12 16:58 Gestational [pregnan cy-induced] hypertension without significant proteinuria, unspecified [facility] 17:00 Gestational [pregnan cy-induced] hypertension without significant proteinuria, unspecified [facility] 2024-08-13 13:16 Gestational [pregnan cy-induced] hypertension without significant proteinuria, unspecified [facility] 2024-08-14 00:01 Gestational [pregnan cy-induced] hypertension without significant proteinuria, unspecified [facility] 2024-08-16 09:42 Gestational [pregnan cy-induced] hypertension without significant proteinuria, third trimester [facility] 2024-08-16 14:17 Gestational [pregnan cy-induced] hypertension without significant proteinuria, unspecified trimester [facility] 2024-08-16 14:33 Gestational [pregnan cy-induced] hypertension without significant proteinuria, unspecified trimester [facility] 2024-08-17 00:04 Gestational [pregnan cy-induced] hypertension without significant proteinuria, unspecified [facility] 2024-08-17 12:25 Gestational [pregnan cy-induced] hypertension without significant proteinuria, unspecified trimester [facility] 2024-08-17 12:26 Gestational [pregnan cy-induced] hypertension without significant proteinuria, unspecified trimester [facility] 2024-08-17 12:28 Encounter for superv ision of normal , unspecified, unspecified trimester [facility] 2024-08-19 09:28 Gestational [pregnan cy-induced] hypertension without significant proteinuria, unspecified trimester [facility] 2024-08-19 09:29 Gestational [pregnan cy-induced] hypertension without significant proteinuria, unspecified [facility] 2024-08-24 12:42 Encounter for screeni ng for Streptococcus B [facility] 2024-08-24 12:44 Encounter for screeni ng for Streptococcus [facility] 2024-08-25 00:03 Encounter for screeni ng for Streptococcus B [facility] 2024-08-25 09:34 Encounter for screeni ng for Streptococcus B [facility] Results/Labs test date facility value unit notes Result panel 1 MEAN PLATELET VOLUME 2024-06-23 14:37 [facility] 10.6 fl (missing) GLUCOSE,1H PP 50GM DOSE 2024-06-23 14:37 [facility] 109 mg/dl Social History date description facility
--- NOTE | 2024-08-26 18:17 | PHARMACY PROGRESS NOTE ---
Best Possible Medication History Admit Date and Time: 08/26/24 1602 Home Medications Medication Instructions Recorded Confirmed Type vitamins no.159-iron 1 tab PO DAILY 03/08/24 08/26/24 History fumarate 28 mg-folic acid 800 mcg tablet ( Vitamin) aspirin 81 mg tablet,delayed 81 mg PO QDAY 04/19/24 08/26/24 History release (Adult Aspirin Regimen) acyclovir 400 mg tablet 400 mg PO TID #15 tabs 05/17/24 08/26/24 Rx Processed by: Pharmacy Medications reviewed in ED?: No Medication History completed: No Patient Interview: Completed Secondary Source(s): Caregiver and Insurance records [facility] Statement: Per RN interview with patient and review of available [employer] insurance records. As the person ultimately responsible for medication therapy, providers are able to order a medication from an existing home medication list in [facility] via the "Reconcile Routine" prior to Confirmation of that medication by home support worker. Such practice is discouraged except when the physician, in their clinical judgment, deems that a medical need exists for a medication without regard to previous use.
[2024-08-26 18:46] LABS: CREATININE,URINE 36.3 mg/dL; PROTEIN/CREATININE RATIO,URINE 0.1 (<=0.2)
[2024-08-26] MEDS: ACETAMINOPHEN 500 MG TABLET PO PRN (20:41)
--- NOTE | 2024-08-26 23:46 | PROVIDER PROGRESS NOTE ---
Labor Progress Note Labor Progress Note Labor Progress Note/Additional Text: S: Patient coping well with contractions. Cervical ripening balloon was spontaneously expelled and pt states the contractions have decreased in intensity slightly since it was expelled. She continues to deny headaches, visual disturbances, RUQ or epigastric pain. Her Ernie remains supportive at the bedside. O: FHR baseline 150s, moderate variability, + accels, no decels Contractions palpate moderate every 5-8 minutes with soft resting tone SVE 4-5/70/ballotable. Vertex with intact membranes s/p 2 doses of 50mcg BC misoprostol A: 29yo @ 37.0wks gestation by LMP c/w first trimester ultrasound Gestational hypertension Early labor FHR Category I P: Unsafe to AROM at this time. Plan to initiate pitocin at 0030 with titration per protocol. Continuous monitoring. Jacuzzi PRN. Nitrous oxide PRN. Epidural per maternal request. Anticipate .
[2024-08-27] MEDS: SODIUM CHLORIDE FLUSH 0.9% 10 ML SYRINGE IVP SCH (00:04)
[2024-08-27] MEDS: LACTATED RINGERS 1,000 ML IV PRN (00:35)
[2024-08-27] MEDS: OXYTOCIN/SODIUM CHLORIDE 500 ML IV SCH (00:37)
[2024-08-27] MEDS ORDERED: fentaNYL 100 MCG/2 ML VIAL ONE ×3 (17:52→20:50)
[2024-08-27] MEDS ORDERED: miSOPROStoL 200 MCG TABLET ONE (17:53)
[2024-08-27] MEDS ORDERED: CARBOPROST TROMETHAMINE 250 MCG/ML VIAL IM ONE ×2 (17:54→18:37)
[2024-08-27] MEDS ORDERED: METHYLERGONOVINE 0.2 MG/ML VIAL ONE (17:54)
[2024-08-27] MEDS ORDERED: PROPOFOL 200 MG/20 ML VIAL IVP ONE (17:57)
[2024-08-27] MEDS ORDERED: TRANEXAMIC ACID IN NACL 0 MG/0 ML BAG IV ONE (17:58)
[2024-08-27] MEDS ORDERED: OXYTOCIN 10 UNIT/ML VIAL ONE ×3 (18:01→18:12)
[2024-08-27] MEDS ORDERED: ONDANSETRON 4 MG/2 ML VIAL ONE (18:26)
[2024-08-27] MEDS ORDERED: DEXAMETHASONE 4 MG/ML VIAL ONE ×2 (18:26→20:10)
[2024-08-27] MEDS ORDERED: TRANEXAMIC ACID IN NACL 1,000 MG/100 ML BAG IV ONE (18:27)
[2024-08-27] MEDS ORDERED: SUCCINYLCHOLINE 200 MG/10 ML VIAL ONE (18:28)
[2024-08-27] MEDS ORDERED: ROCURONIUM 50 MG/5 ML VIAL ONE ×2 (18:28→19:23)
[2024-08-27] MEDS ORDERED: ceFAZolin 1 GM VIAL ONE (18:29)
[2024-08-27 18:35] LABS: BASOPHILS % (AUTO) 0.3 %; EOSINOPHILS % (AUTO) 0.2 %; HCT - HEMATOCRIT 30.4 % (37.0-47.0); LYMPHOCYTES % (AUTO) 14.5 %; MEAN CORPUSCULAR HEMOGLOBIN 31.9 pg (27.0-31.0); MEAN CORPUSCULAR HGB CONC 32.9 g/dL (32.0-36.0); MEAN CORPUSCULAR VOLUME 97.1 fL (81.0-99.0); MEAN PLATELET VOLUME 12.5 fL (7.9-10.8); MONOCYTES % (AUTO) 7.4 %; NEUTROPHILS % (AUTO) 76.1 %; PLT - PLATELET COUNT 221 10^3/uL (130-450); RED BLOOD COUNT 3.13 10^6/uL (4.20-5.40); RED CELL DISTRIBUTION WIDTH 13.4 % (12.0-15.0); WHITE BLOOD COUNT 26.2 x10^3/uL (4.8-10.8)
[2024-08-27] MEDS ORDERED: ACETAMINOPHEN 1,000 MG/100 ML 1,000 MG/100 ML BAG IV ONE (18:35)
[2024-08-27 18:38] LABS: ABNORMAL LYMPHS % (MANUAL) 0 %
[2024-08-27] MEDS ORDERED: OXYTOCIN/SODIUM CHLORIDE 500 ML IV ONE (18:42)
[2024-08-27] MEDS ORDERED: HYDROmorphone 1 MG/ML SYRINGE ONE (19:01)
[2024-08-27 19:20] LABS: BAND NEUTROPHILS % (MANUAL) 8 %; EOSINOPHILS # (MANUAL) 0.3 10^3/uL (0-0.7); LYMPHOCYTES # (MANUAL) 4.2 10^3/uL (1.5-3.5); LYMPHOCYTES % (MANUAL) 16 %; MONOCYTES # (MANUAL) 1.8 10^3/uL (0.0-1.0); NEUTROPHILS # (MANUAL) 19.9 10^3/uL (1.5-6.6)
[2024-08-27 19:21] LABS: DIFFERENTIAL COMMENT MANUAL DIFFERENTIAL; PLATELET ESTIMATE, MANUAL NORMAL (130-450,000) (NORMAL); PLATELET MORPHOLOGY NORMAL APPEARANCE (NORMAL); RBC MORPHOLOGY (MULTIPLE) NORMAL APPEARANCE (NORMAL)
[2024-08-27] MEDS ORDERED: SUGAMMADEX 200 MG/2 ML VIAL IVP ONE (20:05)
[2024-08-27] MEDS ORDERED: ROPIVACAINE 0.5% PF 20 ML VIAL ONE (20:10)
[2024-08-27] MEDS: OXYTOCIN/SODIUM CHLORIDE 500 ML IV PRN (20:43)
--- NOTE | 2024-08-27 20:45 | OPERATIVE REPORT ---
Operative Report General Admit Date: 08/26/24 Procedure Data: Operation Date: 08/27/24 17:38 Proposed Procedures p Section(Not Applicable) - Venancio Taylor MD Actual Procedures p Section - Venancio Taylor MD Anesthesia Type General Case Staff Anesthesia Provider: Amanda Henry Anesthesia Provider: April Garibay Assisting Provider: Moraima Merritt Assisting Provider: Kenisha Flores Assisting Provider: PAUL RIDLEY Case Times Procedure Start: 08/27/24 17:50 Procedure End: 08/27/24 20:25 Time out: 08/27/24 17:40 Implants [employer] BAR [id number] Pre-op diagnosis 37 weeks gestation Induction of labor Hand presentation Postop diagnosis Same Status post primary section (low transverse incision extended to the active segment) Delivery of live elkins Acute blood loss anemia secondary to hemorrhage Procedure Note Estimated Blood Loss (ml): 1,000 Findings: Fetus with a shoulder presentation, hand held in place from vaginal hand. hand extended in the hysterotomy, fetus in a back presentation. T- incision on the uterus with bilateral extensions. Extension into the active segment and the patient should not labor. Not a candidate for TOLAC. Complications: Uterine extension. hemorrhage Other Other Information/Narrative: Patient was laboring on oxytocin, and during a cervical check, a hand was noted in the vaginal canal, and I was called to the room to assess. I had the logistics intern remove her hand second check, the hand was replaceable, but no head was present at the cervix, so we maintained a vaginal hand holding the hand inside the uterus and recommended section. Verbal consent was obtained as this was an emergency. In the operating room, 2 g cefazolin and 500 mg azithromycin were administered. She was then prepared with betadine and draped in the usual sterile fashion in the dorsal supine position with a leftward tilt displacing the uterus. SCDs were on bilateral lower extremities. Time out was taken. General anesthesia was obtained. A pfannenstiel skin incision was then made with the scalpel and carried through to the underlying layer of fascia. Blunt dissection was used to separate the fascia, separate the muscles in the midline and bluntly open the peritoneum. The peritoneum was then stretched to expose the uterus. The peritoneal incision was then extended superiorly and inferiorly with good visualization of the bladder. The bladder blade was inserted. The lower uterine segment was identified and incised in a transverse fashion with the scalpel. The uterine incision was then extended bluntly laterally. The bladder blade was removed. The arm then extended from the hysterotomy and was replaced. The fetus was in a back/shoulder presentation and we had a d ifficult time getting the head to the hysterotomy, and attempted internal podalic version, but this was unsuccessful, so the rectus abdominis muscles were incised to create more room and the uterine incision was extended vertically into the active segment. At that point, the head was able to be delivered followed by the rest of the . The umbilical cord was clamped times two and cut. A cord segment was also collected for cord gasses. The was handed to the pediatric team. The placenta was removed with gentle traction. Oxytocin was added to the IV fluid and was allowed to run freely. The uterus was exteriorized and cleared of all clots and debris. The uterus was inspected and had bilateral uterine extensions. A running locked suture of 0 Vicryl was used to close the vertical portion of the incision bring it down to the lower uterine incision. A suture was then used to close the left extension and closing to the hysterotomy. The right side was then similarly closed and met in the midline. A second imbricating layer was used throughout. due to the bleeding and decreased tone, she received 2 doses of Hemabate. Due to bleeding in the extensions, a 3-0 Vicryl was used to close the serosal bleeding at the extensions. Upon inspection, the repaired hysterotomy was found to be hemostatic. The uterus was firm and returned to the abdomen. The gutters were cleared of all clots and debris. Surgicel was placed in the lower areas due to the serosal tearing. Seprafilm was placed over the uterine incision. The peritoneum was closed with a running suture of 2-0 Vicryl. The incised muscle on the right was reapproximated with 2-0 Vicryl suture. This was also hemostatic. The muscle layer was examined and found to be hemostatic. The fascia was reapproximated w ith 0 Vicryl in a running fashion. The subcutaneous tissue was closed with 2-0 Vicryl. The skin was closed in a subcuticular fashion with 4-0 Monocryl. The patient tolerated the procedure well. Sponge, lap and needle counts were correct times three. The patient was taken to the recovery room in stable condition. I appreciate the assistance of JUSTIN Neves and Kenisha Flores DO during this procedure, and the assistance in retraction, visualization, dissection, and overall assistance during the case were instrumental to the patient's wellbeing. APGARs: 2/8 There is an incision into the active segment of the uterus, and patient is NOT A CANDIDATE FOR TOLAC. She should not labor.
[2024-08-27] MEDS ORDERED: ONDANSETRON ODT 4 MG TABLET TL PRN (20:46)
[2024-08-27] MEDS ORDERED: ePHEDrine 50 MG/ML VIAL IVP PRN (20:49)
[2024-08-27] MEDS ORDERED: ATROPINE ABBOJECT 1 MG/10 ML SYRINGE IVP PRN (20:49)
[2024-08-27] MEDS ORDERED: MORPHINE 2 MG/ML CARPUJECT IVP PRN (20:49)
[2024-08-27] MEDS ORDERED: METOCLOPRAMIDE 10 MG/2 ML VIAL IVP PRN (20:49)
[2024-08-27] MEDS ORDERED: ONDANSETRON 4 MG/2 ML VIAL IVP PRN (20:49)
[2024-08-27] MEDS ORDERED: NALOXONE 0.4 MG/ML VIAL IVP PRN (20:49)
[2024-08-27] MEDS ORDERED: HYDROmorphone 0.5 MG/0.5 ML SYRINGE ONE ×2 (20:50→21:39)
[2024-08-27] MEDS: HYDROmorphone 0.5 MG/0.5 ML SYRINGE IVP PRN (20:50)
[2024-08-27] MEDS ORDERED: LACTATED RINGERS 1,000 ML IV SCH (21:00)
[2024-08-27] MEDS: fentaNYL 100 MCG/2 ML VIAL IVP PRN (21:10)
[2024-08-27] MEDS ORDERED: KETOROLAC 15 MG/ML VIAL ONE (21:28)
[2024-08-27] MEDS: KETOROLAC 30 MG/ML VIAL IVP SCH (21:31)
[2024-08-27] MEDS: HYDROmorphone 0.5 MG/0.5 ML SYRINGE IVP ONE (21:42)
--- NOTE | 2024-08-27 21:52 | PROVIDER PROGRESS NOTE ---
Labor Progress Note Labor Progress Note Labor Progress Note/Additional Text: 08/27/2024 @ 0715 S: Breathing through contractions. She states she is very tired as she has been unable to rest much throughout the night due to increasing frequency and intensity of contractions. She denies headaches, visual disturbances, RUQ or epigastric pain. She is coping well and her Ernie remains supportive at the bedside. O: FHR baseline 150s, moderate variability, + accels, no decels Contractions palpate moderate every 4-5 minutes with soft resting tone Pitocin at 4mU/min SVE 7/90/-2 and vertex AROM moderate amount of clear fluid. A: 29yo @ 37.1wks gestation Active labor Gestational hypertension FHR Category I GBS neg P: Continue augmentation of labor with pitocin and titrate per protocol. Continuos monitoring. Jacuzzi PRN. Nitrous oxide PRN. Epiduarl per maternal request. Anticipate
--- NOTE | 2024-08-27 21:58 | PROVIDER PROGRESS NOTE ---
Labor Progress Note Labor Progress Note Labor Progress Note/Additional Text: 08/27/2024 @ 1220 S: Breathing through contractions. She has been feeling increased intensity with contractions over the past hour. She was able to get in the jacuzzi and felt some relief. She is coping very well. She continues to deny headaches, visual disturbances, RUQ or epigastric pain. Ernie remains supportive at the bedside. O: FHR baseline 150s, moderate variability, + accels, occasional variable decelerations - overall reassuring Contractions palpate moderate every 4-5 minutes with soft resting tone Pitocin at 16mU/min SVE 7/90/-2 and vertex AROM moderate amount of clear fluid. A: 29yo @ 37.1wks gestation Active labor Gestational hypertension FHR Category I GBS neg P: Continue augmentation of labor with pitocin and titrate per protocol. Consider FSE and IUPC with next SVE if unchanged. Continuos monitoring. Jacuzzi PRN. Nitrous oxide PRN. Epiduarl per maternal request. Anticipate
--- NOTE | 2024-08-27 22:05 | PROVIDER PROGRESS NOTE ---
Labor Progress Note Labor Progress Note Labor Progress Note/Additional Text: 08/27/2024 @ 1725 S: Breathing and crying through contractions upon my arrival into the room. Has felt significant increase in intensity of contractions over the past hour. Following diagnosis of malpresentation and failed attempt to reduce presenting part, she voiced feeling scared but verbally consented for delivery via section under general anesthesia. O: FHR baseline 160s, moderate variability, no accels, intermittent variable decelerations Contractions palpate strong every 3-5 minutes with soft resting tone Pitocin upon initial arrival into room at 11mU/min but turned off immediately upon diagnosis of malpresentation. A: 29yo @ 37.1wks gestation Malpresentation of fetus Active labor Gestational hypertension FHR Category II GBS neg P: Pitocin stopped immediately upon diagnosing malpresentation. director of dietary physician notified and presented to the bedside for evaluation. Medical care handed off to physician for emergent delivery.
--- NOTE | 2024-08-27 22:33 | ANESTHESIA POST OP EVALUATION ---
Anesthesia Post Eval Post Anesthesia Eval Vitals: Last Vital Signs Temp 36.4 C L 08/27/24 21:45 Pulse 123 H 08/27/24 21:45 Resp 16 08/27/24 21:45 BP 128/79 08/27/24 21:45 Pulse Ox 99 08/27/24 21:45 CV Function Including HR & BP: Stable Pain Control: Satisfactory Nausea & Vomiting: Negative Mental Status: Baseline Respiratory Status: Airway Patent Hydration Status: Satisfactory Anesthesia Complications: None
[2024-08-27] MEDS: oxyCODONE 5 MG TABLET PO PRN (23:14)
[2024-08-28] MEDS: HYDROmorphone 0.5 MG/0.5 ML SYRINGE IVP PRN (02:09)
[2024-08-28] MEDS: ACETAMINOPHEN 500 MG TABLET PO SCH (05:17)
[2024-08-28] MEDS: LACTATED RINGERS 1,000 ML IV SCH (05:36)
[2024-08-28 05:47] LABS: BASOPHILS # (AUTO) 0.1 10^3/uL (0.0-0.1); BASOPHILS % (AUTO) 0.2 %; HGB - HEMOGLOBIN 7.7 g/dL (12.0-16.0); LYMPHOCYTES # (AUTO) 1.8 10^3/uL (1.5-3.5); LYMPHOCYTES % (AUTO) 6.8 %; MEAN CORPUSCULAR HEMOGLOBIN 32.2 pg (27.0-31.0); MEAN CORPUSCULAR HGB CONC 33.5 g/dL (32.0-36.0); MEAN CORPUSCULAR VOLUME 96.2 fL (81.0-99.0); MEAN PLATELET VOLUME 11.6 fL (7.9-10.8); MONOCYTES # (AUTO) 1.5 10^3/uL (0.0-1.0); MONOCYTES % (AUTO) 5.8 %; NEUTROPHILS # (AUTO) 22.6 10^3/uL (1.5-6.6); PLT - PLATELET COUNT 192 10^3/uL (130-450); RED BLOOD COUNT 2.39 10^6/uL (4.20-5.40); RED CELL DISTRIBUTION WIDTH 13.7 % (12.0-15.0); WHITE BLOOD COUNT 26.3 x10^3/uL (4.8-10.8)
[2024-08-28 06:14] LABS: DIFFERENTIAL COMMENT MANUAL=AUTO DIFF; PLATELET ESTIMATE, MANUAL NORMAL (130-450,000) (NORMAL); PLATELET MORPHOLOGY NORMAL APPEARANCE (NORMAL); RBC MORPHOLOGY (MULTIPLE) NORMAL APPEARANCE (NORMAL); WBC MORPHOLOGY (MULTIPLE) NORMAL APPEARANCE (NORMAL)
[2024-08-28] MEDS ORDERED: HYDROmorphone 1 MG/ML CARPUJECT IVP PRN (07:06)
[2024-08-28] MEDS: SODIUM CHLORIDE 0.9% 500 ML IV ONE (07:42)
[2024-08-28] MEDS: SIMETHICONE CHEW 80 MG TABLET PO PRN (07:42)
[2024-08-28] MEDS: DOCUSATE SODIUM 100 MG CAPSULE PO SCH (10:06)
--- NOTE | 2024-08-28 12:31 | PROVIDER PROGRESS NOTE ---
Subjective Subjective Subjective: Subjective Patient reports she is doing well. Lochia appropriate. Denies heavy bleeding. Has not been ambulating yet, will try to get up. Pelvic and abdominal pain well-controlled. Tolerating oral intake. Diet: Regular. Voiding without difficulty. Passing flatus. Denies BM. Patient is bonding with baby in room Breast feeding going well. Denies feeling lightheaded, dizzy or excessively fatigued. Objective General: Alert, oriented, no apparent distress. Cardiovascular: Regular rate. Regular rhythm. Lungs: No increased work of breathing. Abdomen: Uterus firm. Below umbilicus. No guarding or rebound. Extremities: No pain on palpation. No cords palpated. Distal pulses intact. Incision: Bandage in place. Current Medications Current Medications Current Medications: Current Medications Generic Name Dose Route Start Last Admin Trade Name Freq PRN Reason Stop Dose Admin Acetaminophen 1,000 mg 08/26/24 20:37 08/26/24 20:41 Acetaminophen 500 Mg Tablet PO 1,000 mg Q8HR PRN Administration Pain or Fever > 38C (100.4F) Acetaminophen 1,000 mg 08/28/24 00:00 08/28/24 05:17 Acetaminophen 500 Mg Tablet PO 1,000 mg Q6HR ASHLEY Administration Carboprost Tromethamine 250 mcg 08/26/24 16:02 Carboprost Tromethamine 250 Mcg/Ml Vial IM 08/31/24 16:02 Q15M PRN Step 4: Hemorrhage protocol Docusate Sodium 100 mg 08/28/24 09:00 08/28/24 10:06 Docusate Sodium 100 Mg Capsule PO 100 mg DAILY ASHLEY Administration Hydralazine HCl 5 - 20 mg 08/26/24 16:02 Hydralazine Inj 20 Mg/Ml Vial IVP Q20M PRN SBP >160 or DBP >110 Protocol Hydralazine HCl 10 mg 08/26/24 16:02 Hydralazine Inj 20 Mg/Ml Vial IVP 08/31/24 16:02 .ONCE PRN Step 9 of Labetalol protocol Protocol Hydromorphone HCl 0.5 mg 08/28/24 07:06 Hydromorphone 1 Mg/Ml Carpuject IVP Q2H PRN Severe Pain (Level 7-10) Lactated Ringer's 1,000 mls @ 100 mls/hr 08/26/24 16:02 08/28/24 07:40 Lr IV Infused .Q10H PRN Infusion Save for active labor Oxytocin/Sodium Chloride 500 mls @ 999 mls/hr 08/26/24 16:02 Pitocin/Sodium Chloride IV 08/31/24 16:02 PRN PRN POST- HEMORR PREVENTION Protocol 999 MILLIUNIT/MIN Tranexamic Acid 1,000 mg in 100 mls @ 600 mls/hr 08/26/24 16:02 Tranexamic 1,000 Mg/100ml-Nacl IV 08/31/24 16:02 .ONCE PRN EBL >1200mL and within 3hr Lactated Ringer's 1,000 mls @ 999 mls/hr 08/26/24 16:02 Lr IV 08/29/24 16:01 ONCE PRN distress Oxytocin/Sodium Chloride 500 mls @ 2 mls/hr 08/27/24 00:30 08/27/24 17:27 Pitocin/Sodium Chloride IV 0 milliunit/min TITR ASHLEY 0 mls/hr Titration Protocol 2 MILLIUNIT/MIN Oxytocin/Sodium Chloride 500 mls @ 999 mls/hr 08/27/24 20:46 08/27/24 21:49 Pitocin/Sodium Chloride IV Infused PRN PRN Titration POST- HEMORR PREVENTION Protocol 999 MILLIUNIT/MIN Lactated Ringer's 1,000 mls @ 100 mls/hr 08/27/24 21:00 08/28/24 05:36 Lr IV 100 mls/hr .Q10H ASHLEY Administration Ibuprofen 600 mg 08/29/24 00:00 Ibuprofen 600 Mg Tablet PO Q6HR ASHLEY Labetalol HCl 20 - 80 mg 08/26/24 16:02 Labetalol 20 Mg/4 Ml Syringe IVP Q10M PRN SBP >160 or DBP >110 Protocol Labetalol HCl 20 mg 08/26/24 16:02 Labetalol 20 Mg/4 Ml Syringe IVP 08/31/24 16:02 .ONCE PRN Step 9 of nifedipine protocol Protocol Labetalol HCl 40 mg 08/26/24 16:02 Labetalol 20 Mg/4 Ml Syringe IVP 08/31/24 16:02 .ONCE PRN Step 9 of hydrALAZine protocol Protocol Lidocaine HCl 20 ml 08/26/24 16:02 Lidocaine 1% 20 Ml Mdv ID 08/31/24 16:02 .ONCE PRN PERINEAL REPAIR Methylergonovine Maleate 0.2 mg 08/26/24 16:02 Methylergonovine 0.2 Mg/Ml Vial IM 08/31/24 16:02 .ONCE PRN Step 2: Hemorrhage protocol Misoprostol 800 mcg 08/26/24 16:02 Misoprostol 200 Mcg Tablet BC 08/31/24 16:02 .ONCE PRN Step 3: Hemorrhage protocol Nifedipine 10 - 20 mg 08/26/24 16:02 Nifedipine 10 Mg Capsule PO Q20M PRN SBP >160 or DBP >110 Protocol Ondansetron HCl 4 mg 08/27/24 20:46 Ondansetron Odt 4 Mg Tablet TL Q4HR PRN Nausea / Vomiting Oxycodone HCl 5 mg 08/27/24 20:46 08/28/24 07:42 Oxycodone 5 Mg Tablet PO 5 mg Q4HR PRN Administration Moderate Pain (Level 4-6) Oxytocin 10 unit 08/26/24 16:02 Oxytocin 10 Unit/Ml Vial IM 08/31/24 16:02 .ONCE PRN Step one: If no IV access Simethicone 80 mg 08/27/24 20:46 08/28/24 07:42 Simethicone Chew 80 Mg Tablet PO 80 mg TID PRN Administration Gas Sodium Chloride 10 ml 08/26/24 17:00 08/28/24 10:06 Sodium Chloride Flush 0.9% 10 Ml Syringe IVP 10 ml 0100,0900,1700 ASHLEY Administration Sodium Chloride 10 ml 08/26/24 16:02 Sodium Chloride Flush 0.9% 10 Ml Syringe IVP PRN PRN NEEDED PER PROVIDER ORDERS Objective Vital Signs/Intake & Output Vital Signs: Vital Signs x48h Temp Pulse Resp BP Pulse Ox 08/28/24 07:59 36.6 C 112 H 15 116/69 97 08/28/24 05:18 36.9 C 114 H 16 115/73 98 Intake & Output: Intake & Output 08/25/24 08/26/24 08/27/24 08/28/24 23:59 23:59 23:59 23:59 Intake Total 3135 / 3135 1974 / 1974 Output Total 75 / 75 1250 / 1250 Balance 3060 / 3060 725 / 725 Weight (kg) 230 lb Lab Results 08/28/24 05:39 08/26/24 16:15 Other Labs: Lab Results x24hrs 08/28/24 08/27/24 Range/Units 05:39 18:19 WBC 26.3 H 26.2 H (4.8-10.8) x10^3/uL RBC 2.39 L 3.13 L (4.20-5.40) 10^6/uL Hgb 7.7 L 10.0 L (12.0-16.0) g/dL Hct 23.0 L 30.4 L (37.0-47.0) % MCV 96.2 97.1 (81.0-99.0) fL MCH 32.2 H 31.9 H (27.0-31.0) pg MCHC 33.5 32.9 (32.0-36.0) g/dL RDW 13.7 13.4 (12.0-15.0) % Plt Count 192 221 (130-450) 10^3/uL MPV 11.6 H 12.5 H (7.9-10.8) fL Neut # (Auto) 22.6 H Not Reportable Lymph # (Auto) 1.8 Not Reportable [place] # (Auto) 1.5 H Not Reportable Eos # (Auto) 0.0 Not Reportable Baso # (Auto) 0.1 Not Reportable Absolute Nucleated RBC 0.00 Not Reportable Total Counted 100 Band Neuts % (Manual) Not Reportable 8 (0 - 10) % Abnorm Lymph % (Manual) Not Reportable 0 % Nucleated RBC % 0.0 Not Reportable Neutrophils # (Manual) Not Reportable 19.9 H (1.5-6.6) 10^3/uL Lymphocytes # (Manual) Not Reportable 4.2 H (1.5-3.5) 10^3/uL Monocytes # (Manual) Not Reportable 1.8 H (0.0-1.0) 10^3/uL Eosinophils # (Manual) Not Reportable 0.3 (0-0.7) 10^3/uL Basophils # (Manual) Not Reportable 0.0 (0-0.1) 10^3/uL Differential Comment MANUAL=AUTO DIFF MANUAL DIFFERENTIAL WBC Morphology NORMAL APPEARANCE (NORMAL) Platelet Estimate NORMAL (130-450,000) NORMAL (130-450,000) (NORMAL) Platelet Morphology NORMAL APPEARANCE NORMAL APPEARANCE (NORMAL) RBC Morph Micro Appear NORMAL APPEARANCE NORMAL APPEARANCE (NORMAL) Assessment/Plan Problem List (1) Delivery by section: Impression: Routine postoperative care. Discussed recovery and muscle incisions. Will have significant abdominal tenderness for quite some time. Received a tap block which may help today, but will wear off likely this evening. Routine care. Anticipate discharge in 2 days. (2) Gestational HTN: Impression: Blood pressure normal today. Will continue to monitor. Qualifiers: Trimester: third trimester Qualified Code(s): O13.3 - Gestational [-induced] hypertension without significant proteinuria, third trimester (3) Rh negative status during : Impression: Rh workup pending Qualifiers: Trimester: third trimester Qualified Code(s): O26.893 - Other specified related conditions, third trimester; Z67.91 - Unspecified blood type, Rh negative (4) Acute blood loss anemia: Impression: Significant drop as expected. Mild tachycardia. Received fluid bolus this morning. (5) Delivery outcome of elkins infant: Qualifiers: outcome: live Qualified Code(s): Z37.0 - Single live
[2024-08-28] MEDS: IBUPROFEN 600 MG TABLET PO SCH (16:13)
[2024-08-29] MEDS: SODIUM CHLORIDE 0.9% 1,000 ML IV ONE (04:51)
[2024-08-29 05:46] LABS: BASOPHILS % (AUTO) 0.2 %; EOSINOPHILS % (AUTO) 0.1 %; LYMPHOCYTES # (AUTO) 1.9 10^3/uL (1.5-3.5); LYMPHOCYTES % (AUTO) 12.4 %; MEAN CORPUSCULAR HEMOGLOBIN 31.7 pg (27.0-31.0); MEAN CORPUSCULAR HGB CONC 32.3 g/dL (32.0-36.0); MEAN CORPUSCULAR VOLUME 98.4 fL (81.0-99.0); MEAN PLATELET VOLUME 10.7 fL (7.9-10.8); MONOCYTES # (AUTO) 1.3 10^3/uL (0.0-1.0); MONOCYTES % (AUTO) 8.7 %; NEUTROPHILS # (AUTO) 11.5 10^3/uL (1.5-6.6); NEUTROPHILS % (AUTO) 77.1 %; PLT - PLATELET COUNT 156 10^3/uL (130-450); RED BLOOD COUNT 1.89 10^6/uL (4.20-5.40); RED CELL DISTRIBUTION WIDTH 14.1 % (12.0-15.0); WHITE BLOOD COUNT 14.9 x10^3/uL (4.8-10.8)
[2024-08-29 06:04] LABS: HCT - HEMATOCRIT 18.6 % (37.0-47.0)
--- NOTE | 2024-08-29 10:44 | PROVIDER PROGRESS NOTE ---
Subjective Subjective Subjective: Subjective Patient reports she is doing well. Lochia appropriate. Denies heavy bleeding. Ambulating around room and in hallway. Mild tachycardia this morning, but no dizziness. Pelvic and abdominal pain well-controlled. Tolerating oral intake. Diet: Regular. Voiding without difficulty. Passing flatus. Denies BM. Patient is bonding with baby in room Breast feeding going well. Objective General: Alert, oriented, no apparent distress. Cardiovascular: Regular rate. Regular rhythm. Lungs: No increased work of breathing. Abdomen: Uterus firm. Below umbilicus. No guarding or rebound. Mild tenderness to palpation, mostly around area of rectus incision. No peritoneal signs. Extremities: No pain on palpation. No cords palpated. Incision: Clean, dry, and intact. Current Medications Current Medications Current Medications: Current Medications Generic Name Dose Route Start Last Admin Trade Name Freq PRN Reason Stop Dose Admin Acetaminophen 1,000 mg 08/28/24 00:00 08/29/24 03:58 Acetaminophen 500 Mg Tablet PO 1,000 mg Q6HR ASHLEY Administration Carboprost Tromethamine 250 mcg 08/26/24 16:02 Carboprost Tromethamine 250 Mcg/Ml Vial IM 08/31/24 16:02 Q15M PRN Step 4: Hemorrhage protocol Docusate Sodium 100 mg 08/28/24 09:00 08/28/24 10:06 Docusate Sodium 100 Mg Capsule PO 100 mg DAILY ASHLEY Administration Hydralazine HCl 5 - 20 mg 08/26/24 16:02 Hydralazine Inj 20 Mg/Ml Vial IVP Q20M PRN SBP >160 or DBP >110 Protocol Hydralazine HCl 10 mg 08/26/24 16:02 Hydralazine Inj 20 Mg/Ml Vial IVP 08/31/24 16:02 .ONCE PRN Step 9 of Labetalol protocol Protocol Hydromorphone HCl 0.5 mg 08/28/24 07:06 Hydromorphone 1 Mg/Ml Carpuject IVP Q2H PRN Severe Pain (Level 7-10) Tranexamic Acid 1,000 mg in 100 mls @ 600 mls/hr 08/26/24 16:02 Tranexamic 1,000 Mg/100ml-Nacl IV 08/31/24 16:02 .ONCE PRN EBL >1200mL and within 3hr Lactated Ringer's 1,000 mls @ 100 mls/hr 08/27/24 21:00 08/28/24 23:03 Lr IV Not Given .Q10H ASHLEY Ibuprofen 600 mg 08/28/24 16:00 08/29/24 03:57 Ibuprofen 600 Mg Tablet PO 600 mg Q6HR ASHLEY Administration Labetalol HCl 20 - 80 mg 08/26/24 16:02 Labetalol 20 Mg/4 Ml Syringe IVP Q10M PRN SBP >160 or DBP >110 Protocol Labetalol HCl 20 mg 08/26/24 16:02 Labetalol 20 Mg/4 Ml Syringe IVP 08/31/24 16:02 .ONCE PRN Step 9 of nifedipine protocol Protocol Labetalol HCl 40 mg 08/26/24 16:02 Labetalol 20 Mg/4 Ml Syringe IVP 08/31/24 16:02 .ONCE PRN Step 9 of hydrALAZine protocol Protocol Methylergonovine Maleate 0.2 mg 08/26/24 16:02 Methylergonovine 0.2 Mg/Ml Vial IM 08/31/24 16:02 .ONCE PRN Step 2: Hemorrhage protocol Misoprostol 800 mcg 08/26/24 16:02 Misoprostol 200 Mcg Tablet BC 08/31/24 16:02 .ONCE PRN Step 3: Hemorrhage protocol Nifedipine 10 - 20 mg 08/26/24 16:02 Nifedipine 10 Mg Capsule PO Q20M PRN SBP >160 or DBP >110 Protocol Ondansetron HCl 4 mg 08/27/24 20:46 Ondansetron Odt 4 Mg Tablet TL Q4HR PRN Nausea / Vomiting Oxycodone HCl 5 mg 08/27/24 20:46 08/29/24 00:42 Oxycodone 5 Mg Tablet PO 5 mg Q4HR PRN Administration Moderate Pain (Level 4-6) Simethicone 80 mg 08/27/24 20:46 08/28/24 16:13 Simethicone Chew 80 Mg Tablet PO 80 mg TID PRN Administration Gas Sodium Chloride 10 ml 08/26/24 17:00 08/28/24 23:04 Sodium Chloride Flush 0.9% 10 Ml Syringe IVP Not Given 0100,0900,1700 ASHLEY Sodium Chloride 10 ml 08/26/24 16:02 Sodium Chloride Flush 0.9% 10 Ml Syringe IVP PRN PRN NEEDED PER PROVIDER ORDERS Objective Vital Signs/Intake & Output Vital Signs: Vital Signs x48h Temp Pulse Resp BP Pulse Ox 08/29/24 09:15 36.9 C 125 H 18 120/76 99 08/29/24 08:55 36.8 C 124 H 17 117/70 100 08/29/24 04:06 37.2 C 122 H 18 120/72 100 Intake & Output: Intake & Output 08/26/24 08/27/24 08/28/24 08/29/24 23:59 23:59 23:59 23:59 Intake Total 3135 / 3135 3622 / 3622 1910 / 1910 Output Total 75 / 75 4100 / 4100 2150 / 2150 Balance 3060 / 3060 -478 / -478 -240 / -240 Weight (kg) 230 lb Lab Results 08/29/24 11:10 08/26/24 16:15 Other Labs: Lab Results x24hrs 08/29/24 08/26/24 Range/Units 05:43 16:15 WBC 14.9 H (4.8-10.8) x10^3/uL RBC 1.89 L (4.20-5.40) 10^6/uL Hgb 6.0 L* (12.0-16.0) g/dL Hct 18.6 L* (37.0-47.0) % MCV 98.4 (81.0-99.0) fL MCH 31.7 H (27.0-31.0) pg MCHC 32.3 (32.0-36.0) g/dL RDW 14.1 (12.0-15.0) % Plt Count 156 (130-450) 10^3/uL MPV 10.7 (7.9-10.8) fL Neut # (Auto) 11.5 H (1.5-6.6) 10^3/uL Lymph # (Auto) 1.9 (1.5-3.5) 10^3/uL [place] # (Auto) 1.3 H (0.0-1.0) 10^3/uL Eos # (Auto) 0.0 (0.0-0.7) 10^3/uL Baso # (Auto) 0.0 (0.0-0.1) 10^3/uL Absolute Nucleated RBC 0.00 x10^3/uL Nucleated RBC % 0.0 /100WBC Blood Type O NEGATIVE Antibody Screen NEGATIVE Crossmatch IS Only See Detail Assessment/Plan Problem List (1) Delivery by section: Impression: Routine care. Routine postoperative care. Overall well, although mild tachycardia, no other symptoms. Breast-feeding going well. Anticipate discharge tomorrow if doing well. Possible 2 days. (2) Gestational HTN: Impression: Blood pressure kaveh under good control Qualifiers: Trimester: third trimester Qualified Code(s): O13.3 - Gestational [-induced] hypertension without significant proteinuria, third trimester (3) Acute blood loss anemia: Impression: 2 units PRBCs ordered. Will get H/H prior to second unit and H&H 4 hours after completion. (4) Delivery outcome of elkins : Qualifiers: outcome: live Qualified Code(s): Z37.0 - Single live
[2024-08-29 11:15] LABS: MEAN CORPUSCULAR HEMOGLOBIN 31.4 pg (27.0-31.0); MEAN CORPUSCULAR HGB CONC 32.2 g/dL (32.0-36.0); MEAN CORPUSCULAR VOLUME 97.5 fL (81.0-99.0); MEAN PLATELET VOLUME 10.9 fL (7.9-10.8); RED BLOOD COUNT 2.04 10^6/uL (4.20-5.40); RED CELL DISTRIBUTION WIDTH 14.8 % (12.0-15.0); WHITE BLOOD COUNT 14.8 x10^3/uL (4.8-10.8)
[2024-08-29 11:18] LABS: HCT - HEMATOCRIT 19.9 % (37.0-47.0); HGB - HEMOGLOBIN 6.4 g/dL (12.0-16.0)
[2024-08-29] MEDS ORDERED: IBUPROFEN 600 MG TABLET PO SCH (16:00)
[2024-08-29 18:52] LABS: HCT - HEMATOCRIT 22.8 % (37.0-47.0); HGB - HEMOGLOBIN 7.3 g/dL (12.0-16.0); MEAN CORPUSCULAR HEMOGLOBIN 30.5 pg (27.0-31.0); MEAN CORPUSCULAR VOLUME 95.4 fL (81.0-99.0); MEAN PLATELET VOLUME 10.9 fL (7.9-10.8); RED BLOOD COUNT 2.39 10^6/uL (4.20-5.40); WHITE BLOOD COUNT 14.4 x10^3/uL (4.8-10.8)
--- NOTE | 2024-08-29 19:23 | PROVIDER PROGRESS NOTE ---
Current Medications Current Medications Current Medications: Current Medications Generic Name Dose Route Start Last Admin Trade Name Freq PRN Reason Stop Dose Admin Acetaminophen 1,000 mg 08/28/24 00:00 08/29/24 18:55 Acetaminophen 500 Mg Tablet PO 1,000 mg Q6HR ASHLEY Administration Carboprost Tromethamine 250 mcg 08/26/24 16:02 Carboprost Tromethamine 250 Mcg/Ml Vial IM 08/31/24 16:02 Q15M PRN Step 4: Hemorrhage protocol Docusate Sodium 100 mg 08/28/24 09:00 08/29/24 12:13 Docusate Sodium 100 Mg Capsule PO 100 mg DAILY ASHLEY Administration Hydralazine HCl 5 - 20 mg 08/26/24 16:02 Hydralazine Inj 20 Mg/Ml Vial IVP Q20M PRN SBP >160 or DBP >110 Protocol Hydralazine HCl 10 mg 08/26/24 16:02 Hydralazine Inj 20 Mg/Ml Vial IVP 08/31/24 16:02 .ONCE PRN Step 9 of Labetalol protocol Protocol Hydromorphone HCl 0.5 mg 08/28/24 07:06 Hydromorphone 1 Mg/Ml Carpuject IVP Q2H PRN Severe Pain (Level 7-10) Tranexamic Acid 1,000 mg in 100 mls @ 600 mls/hr 08/26/24 16:02 Tranexamic 1,000 Mg/100ml-Nacl IV 08/31/24 16:02 .ONCE PRN EBL >1200mL and within 3hr Lactated Ringer's 1,000 mls @ 100 mls/hr 08/27/24 21:00 08/28/24 23:03 Lr IV Not Given .Q10H ASHLEY Ibuprofen 600 mg 08/28/24 16:00 08/29/24 18:55 Ibuprofen 600 Mg Tablet PO 600 mg Q6HR ASHLEY Administration Labetalol HCl 20 - 80 mg 08/26/24 16:02 Labetalol 20 Mg/4 Ml Syringe IVP Q10M PRN SBP >160 or DBP >110 Protocol Labetalol HCl 20 mg 08/26/24 16:02 Labetalol 20 Mg/4 Ml Syringe IVP 08/31/24 16:02 .ONCE PRN Step 9 of nifedipine protocol Protocol Labetalol HCl 40 mg 08/26/24 16:02 Labetalol 20 Mg/4 Ml Syringe IVP 08/31/24 16:02 .ONCE PRN Step 9 of hydrALAZine protocol Protocol Methylergonovine Maleate 0.2 mg 08/26/24 16:02 Methylergonovine 0.2 Mg/Ml Vial IM 08/31/24 16:02 .ONCE PRN Step 2: Hemorrhage protocol Misoprostol 800 mcg 08/26/24 16:02 Misoprostol 200 Mcg Tablet BC 08/31/24 16:02 .ONCE PRN Step 3: Hemorrhage protocol Nifedipine 10 - 20 mg 08/26/24 16:02 Nifedipine 10 Mg Capsule PO Q20M PRN SBP >160 or DBP >110 Protocol Ondansetron HCl 4 mg 08/27/24 20:46 Ondansetron Odt 4 Mg Tablet TL Q4HR PRN Nausea / Vomiting Oxycodone HCl 5 mg 08/27/24 20:46 08/29/24 18:54 Oxycodone 5 Mg Tablet PO 5 mg Q4HR PRN Administration Moderate Pain (Level 4-6) Simethicone 80 mg 08/27/24 20:46 08/29/24 12:14 Simethicone Chew 80 Mg Tablet PO 80 mg TID PRN Administration Gas Sodium Chloride 10 ml 08/26/24 17:00 08/28/24 23:04 Sodium Chloride Flush 0.9% 10 Ml Syringe IVP Not Given 0100,0900,1700 [facility] Sodium Chloride 10 ml 08/26/24 16:02 Sodium Chloride Flush 0.9% 10 Ml Syringe IVP PRN PRN NEEDED PER PROVIDER ORDERS Objective Vital Signs/Intake & Output Vital Signs: Vital Signs x48h Temp Pulse Resp BP Pulse Ox 08/29/24 16:45 36.8 C 108 H 17 115/78 99 08/29/24 14:09 37.0 C 08/29/24 13:17 37.0 C 08/29/24 12:43 37.5 C 08/29/24 12:21 37.6 C 18 123/80 97 08/29/24 12:20 37.0 C 17 114/74 98 08/29/24 12:04 37.3 C 124 H 18 115/74 99 08/29/24 11:35 37.5 C 127 H 18 117/78 99 Intake & Output: Intake & Output 08/26/24 08/27/24 08/28/24 08/29/24 23:59 23:59 23:59 23:59 Intake Total 3135 / 3135 3622 / 3622 2520 / 2520 Output Total 4100 / 4100 2150 / 2150 Balance 3060 / 3060 -478 / -478 370 / 370 Weight (kg) 230 lb Objective Abdomen: positive No distention and Tenderness (Appropriate postsurgical tenderness, no specific areas of increased tenderness.); negative Guarding, Rebound or Mass Skin: positive Pallor (Improved) Neurologic/Psychiatric: positive Oriented x3 and Mood/affect nml Lab Results 08/29/24 18:49 08/26/24 16:15 Other Labs: Lab Results x24hrs 08/29/24 08/29/24 08/29/24 Range/Units 18:49 11:10 05:43 WBC 14.4 H 14.8 H 14.9 H (4.8-10.8) x10^3/uL RBC 2.39 L 2.04 L 1.89 L (4.20-5.40) 10^6/uL Hgb 7.3 L 6.4 L* 6.0 L* (12.0-16.0) g/dL Hct 22.8 L 19.9 L* 18.6 L* (37.0-47.0) % MCV 95.4 97.5 98.4 (81.0-99.0) fL MCH 30.5 31.4 H 31.7 H (27.0-31.0) pg MCHC 32.0 32.2 32.3 (32.0-36.0) g/dL RDW 15.0 14.8 14.1 (12.0-15.0) % Plt Count 166 148 156 (130-450) 10^3/uL MPV 10.9 H 10.9 H 10.7 (7.9-10.8) fL Neut # (Auto) 11.5 H (1.5-6.6) 10^3/uL Lymph # (Auto) 1.9 (1.5-3.5) 10^3/uL [place] # (Auto) 1.3 H (0.0-1.0) 10^3/uL Eos # (Auto) 0.0 (0.0-0.7) 10^3/uL Baso # (Auto) 0.0 (0.0-0.1) 10^3/uL Absolute Nucleated RBC 0.00 x10^3/uL Nucleated RBC % 0.0 /100WBC Blood Type Antibody Screen Crossmatch IS Only 08/26/24 Range/Units 16:15 WBC (4.8-10.8) x10^3/uL RBC (4.20-5.40) 10^6/uL Hgb (12.0-16.0) g/dL Hct (37.0-47.0) % MCV (81.0-99.0) fL MCH (27.0-31.0) pg MCHC (32.0-36.0) g/dL RDW (12.0-15.0) % Plt Count (130-450) 10^3/uL MPV (7.9-10.8) fL Neut # (Auto) (1.5-6.6) 10^3/uL Lymph # (Auto) (1.5-3.5) 10^3/uL [place] # (Auto) (0.0-1.0) 10^3/uL Eos # (Auto) (0.0-0.7) 10^3/uL Baso # (Auto) (0.0-0.1) 10^3/uL Absolute Nucleated RBC x10^3/uL Nucleated RBC % /100WBC Blood Type O NEGATIVE Antibody Screen NEGATIVE Crossmatch IS Only See Detail Assessment/Plan Problem List (1) Delivery by section: Impression: Routine postoperative care. Anticipate discharge tomorrow if H/H stable.. (2) Gestational HTN: Impression: Blood pressure normal. Qualifiers: Trimester: third trimester Qualified Code(s): O13.3 - Gestational [-induced] hypertension without significant proteinuria, third trimester (3) Acute blood loss anemia: Impression: Patient feeling much better after blood transfusions. Repeat H&H at 7.3/22.8. Will recheck CBC in the morning. Iron transfusion in the morning as pharmacy is not available to mix tonight. Tachycardia greatly improved.
[2024-08-30 07:04] LABS: BASOPHILS % (AUTO) 0.4 %; EOSINOPHILS # (AUTO) 0.1 10^3/uL (0.0-0.7); EOSINOPHILS % (AUTO) 0.9 %; HCT - HEMATOCRIT 22.6 % (37.0-47.0); HGB - HEMOGLOBIN 7.3 g/dL (12.0-16.0); LYMPHOCYTES # (AUTO) 2.6 10^3/uL (1.5-3.5); LYMPHOCYTES % (AUTO) 22.9 %; MEAN CORPUSCULAR HEMOGLOBIN 30.9 pg (27.0-31.0); MEAN CORPUSCULAR HGB CONC 32.3 g/dL (32.0-36.0); MEAN CORPUSCULAR VOLUME 95.8 fL (81.0-99.0); MEAN PLATELET VOLUME 11.5 fL (7.9-10.8); MONOCYTES # (AUTO) 0.9 10^3/uL (0.0-1.0); MONOCYTES % (AUTO) 8.1 %; NEUTROPHILS # (AUTO) 7.3 10^3/uL (1.5-6.6); NEUTROPHILS % (AUTO) 65.2 %; PLT - PLATELET COUNT 159 10^3/uL (130-450); RED BLOOD COUNT 2.36 10^6/uL (4.20-5.40); RED CELL DISTRIBUTION WIDTH 15.1 % (12.0-15.0); WHITE BLOOD COUNT 11.2 x10^3/uL (4.8-10.8)
[2024-08-30] MEDS: FERRIC GLUCONATE 125 MG in SODIUM CHLORIDE 0.9% 100ML 100 ML IV ONE (08:48)
[2024-08-30 10:04] VITALS: BP 119/79; TEMP 97.9; O2SAT 98
--- NOTE | 2024-08-30 14:13 | Labor Flowsheet ---
Labor Flowsheet Datetime Report Generated by CPN: 08/30/2024 14:12 Datetime: 08/27/2024 17:38 UTERINE ACTIVITY Monitor Mode: Palpation Frequency (min): 1-3 Quality: Strong Duration (sec): 60 Pattern: Normal: <= 5 Contractions in 10 Minutes Resting Tone (Palpate): Relaxed Contraction Comments: unable to assess ctx. palpate strong last approx 60sec ASSESSMENT A Monitor Mode: External US Monitor Interventions for FHR: Ultrasound Adjusted FHR Baseline Rate : 180 Decelerations: Variable Category: Category II Comments: interupted strip due to maternal position and pain Pain Coping: Crying Oxygen Method: Room Air Patient Care Comments: pt to OR Datetime: 08/27/2024 17:30 Pain Assessment Comments: pt using nitrious oixide LaborFlag: Labor Datetime: 08/27/2024 17:29 Communication Comments: Dr. Brandon at bedside Datetime: 08/27/2024 17:27 MEDICATIONS Pitocin (milliunits): Discontinued Datetime: 08/27/2024 17:26 Vaginal Exam Comments: shoulder and hand presentation Datetime: 08/27/2024 17:21 Medication Comments: 500mL bolus of LR started Datetime: 08/27/2024 17:18 VITAL SIGNS NBP Sys/Erica/Mean (mmHg): 137 : 86 : 93 Pulse: 103 Datetime: 08/27/2024 17:08 Patient Position/Activity: Left Lateral Datetime: 08/27/2024 16:44 Accelerations: 15X15 Comfort Measures: Coaching Datetime: 08/27/2024 16:15 Monitor Interventions for UA: Alfred Adjusted Variability: Moderate 6-25 bpm Datetime: 08/27/2024 16:00 VAGINAL EXAM Dilatation (cm): 7.0 Effacement (%): 90 Station: -2 Exam by: Darío, RN Datetime: 08/27/2024 15:45 Temperature (C): 36.7 Datetime: 08/27/2024 15:15 FHR Baseline Changes: No Baseline Change Datetime: 08/27/2024 14:59 PATIENT CARE IV/Blood Work: IV Infusing per Order Datetime: 08/27/2024 14:57 I/O Interventions: Up to BR Datetime: 08/27/2024 14:34 Provider Reviewed Strip: Yes COMMUNICATION Communication: Report Given to @ René Notification Reason: Status; Labor Status; Uterine Activity Datetime: 08/27/2024 12:11 Vaginal Bleeding: Normal Show Cervix, Consistency: Soft Cervix, Position: Midposition Datetime: 08/27/2024 10:36 Respirations: 17 SpO2 (%): 98 Datetime: 08/27/2024 09:00 Stage of : Labor Datetime: 08/27/2024 07:13 Membrane Status: Ruptured Membranes Ruptured Date/Time: 08/27/2024 07:13 Membranes Rupture Method: Artificial Amniotic Fluid Color: Clear Datetime: 08/27/2024 06:30 Pitocin Checklist: At Least 1 Acceleration of 15 bpm x 15 Seconds in 30 Minutes or Adequate Variabi lity; No More than 1 Late Deceleration Occurred in Past 30 Minutes; No More than 5 Uterine Contractio ns in 10 Minutes for any 20 Minute Interval; Uterus Palpates Soft between Contractions Datetime: 08/27/2024 02:01 PAIN Pain Scale: 7 Pain Presence: Intermittent Pain Type: Cramping; Pressure Pain Location: Abdomen; Back Pain Relief Measures: Comfort Measures Datetime: 08/26/2024 23:30 Temperature Route: Oral Datetime: 08/26/2024 23:02 Strip Reviewed by: Alma RosaRN Provider Notified (Name): Tyler Datetime: 08/26/2024 16:34 Cervical Ripening Agents: Cytotec @
--- NOTE | 2024-08-30 20:57 | Discharge Summary ---
"Discharge Summary Admit Date: 08/26/24 Discharge Date: 08/30/24 Discharging Provider: Sheron Fernandez MD Code Status: Attempt Resuscitation DIAGNOSES Admission Diagnoses: gestation hypertension at 37 weeks admitted for labor induction. Discharge Diagnoses with Status of Each Condition: hand presentation requiring emergency c section with Low transverse with t incision. very difficult extraction. Acute blood loss anemia from surgery requiring 2 units of blood and IV iron HPI History of Present Illness: patient presented for labor induction due to gestational htn. Did not meet criteria for preE. CONSULTS | PROCEDURES Procedures: emregency c section. HOSPITAL COURSE Hospital Course: patient admitted, had cervical balloon placed and 50 mcg misoprostol. balloon fell out. Another dose miso given. ayanna but head still very high. Did not really want pitocin but agreed to start at midnight. progressed to 7 cm and was there for many hours. next check and hand was presenting. Shoulder wedged into cervical opening. taking back for emergency c section at about 7 pm when hand was found. general anesthesia. C section was very difficult. extraction was very hard. T incision made in uterus. bled over a liter. PP quite anemia and 2 units of blood given. and then IV iron. felt much better after this. Spirits were good given all that happened to her. Discharged home on PP day #3. At discharge she is doing well. getting up without dizziness or pounding heart beat. ALLERGIES Allergies Allergy/AdvReac Type Severity Reaction Status Date / Time No Known Drug Allergies Allergy Verified 08/28/24 14:42 MEDICATIONS Ambulatory Orders Medication Instructions Recorded Confirmed vitamins no.159-iron 1 tab PO DAILY 03/08/24 08/26/24 fumarate 28 mg-folic acid 800 mcg tablet ( Vitamin) acetaminophen 325 mg capsule 325 - 650 mg (1 - 2 x 325 mg) PO 08/30/24 Q4H PRN pain #60 caps docusate sodium 100 mg capsule 100 mg PO BID PRN constipation #60 08/30/24 (Colace) caps ferrous sulfate 325 mg (65 mg 325 mg PO Q OTHER DAY #90 tabs 08/30/24 iron) tablet (FeroSul) ibuprofen 600 mg tablet 600 mg PO Q6H PRN pain #30 tabs 08/30/24 oxycodone 5 mg tablet 5 mg PO Q4H PRN pain #10 tabs 08/30/24 polyethylene glycol 3350 17 17 g PO QDAY PRN constipation #510 08/30/24 gram/dose oral powder (Miralax) grams PHYSICAL EXAM AT DISCHARGE Vital Signs: stable General Appearance: positive No acute distress and Alert Respiratory: positive No respiratory distress Cardiovascular: positive Regular rate & rhythm Abdomen: positive Other (normally tender. Steristrips are dry, no erythema.) LABS 08/30/24 06:35 08/26/24 16:15 FOLLOW UP Follow Up: in clinic in 1-2 weeks. Discharge Plan Discharge Patient Disposition: Home, Self Care Condition: Good Prescriptions: Continued ibuprofen 600 mg tablet 600 mg PO Q6H PRN (Reason: pain) Qty: 30 1RF docusate sodium [Colace] 100 mg capsule 100 mg PO BID PRN (Reason: constipation) Qty: 60 1RF acetaminophen 325 mg capsule 325 - 650 mg PO Q4H PRN (Reason: pain) Qty: 60 1RF ferrous sulfate [FeroSul] 325 mg (65 mg iron) tablet 325 mg PO Q OTHER DAY Qty: 90 0RF oxycodone 5 mg tablet 5 mg PO Q4H PRN (Reason: pain) Qty: 10 0RF polyethylene glycol 3350 [Miralax] 17 gram/dose powder 17 g PO QDAY PRN (Reason: constipation) Qty: 510 0RF Vitamin 28 mg iron- 800 mcg tablet 1 tab PO DAILY Activity Restrictions: Additional Comments Activity Restrictions/Additional Instructions: nothing in vagina for 6 week. no lifting more than 15 pounds for 6 weeks. OK to shower, no bath for 2 weeks. call if significant headache, or very heavy bleeding. Constipation is common. Be sure to eat lots of fruits and veggie, drink lots of water. Coffee can be helpful if you like it and 1 cup is fine for baby. Diet: Regular Print Language: Italian Patient Instructions:"
--- NOTE | 2024-08-31 14:48 | XRAY Report ---
PROCEDURE: Abdomen 1 View INDICATIONS: EMERGENCY R/O RETAINED OBJECT TECHNIQUE: 1 view of the abdomen were acquired. COMPARISON: None. FINDINGS: Surgical changes and devices: None. Bowel: No pneumoperitoneum. The bowel gas pattern is normal. Mild to moderate fecal stasis in the c olon is seen. No radiopaque foreign bodies. Soft tissues: No masses; visualized solid organ contours appear normal in size. No suspicious abdom inal calcifications. Bones: No suspicious bony abnormalities. IMPRESSION: No radiopaque foreign body is seen. No gross pneumoperitoneum. Reviewed by: Tuan Cole MD on 08/27/2024 8:35 PM PDT Approved by: Tuan Cole MD on 08/27/2024 8:35 PM PDT Station ID: [id number]
== END 2024-08-30 14:11 | disposition home or self-care (01) | DRG 787 ==
LOC: WFO 14:55 → FBP 14:59
PROVIDERS: ADMIT Nurse Practitioner Obstetrics & Gynecology; ATTEND Nurse Practitioner Obstetrics & Gynecology